=== PATIENT | male | born 1985 | race Caucasian/White ===

== ENCOUNTER 2017-12-10 04:50 | Emergency (ER) | payer OTHER ==
[~2017-12-10] VITALS: Ht 177.8 cm; Wt 94.8 kg
[2017-12-10 04:55] VITALS: BP 137/94
--- NOTE | 2017-12-10 04:59 | NUR ---
TO BED # 4 AMBULATORY, REPORT GIVEN TO CLAUDIA AGUIRRE.
--- NOTE | 2017-12-10 05:00 | NUR ---
32/M CAME IN ED, C/O N/V X4 DAYS, PT REPORTS VOMITING X4 TODAY. PT REPORTS COFFEE-GROUND EMESIS, SUBJECTIVE FEVER. PT REPORTS 10/10 CRAMPING PAIN THROUGHOUT BODY, INCLUDING ABD AND BUE. BS HYPOACTIVE X4, ABD SOFT, ROUND, SLIGHT TENDERNESS ON PALPATION. PT REPORTS "NOT EATING FOR 3 DAYS." LBM 3 DAYS AGO. HX ITP, HLD, GERD, SPLEENECTOMY. SKIN IS INTACT, PINK/WARM/DRY; AAOX4, PERRL, WITH EVEN AND STEADY GAIT; LUNGS CLEAR BL, BREATHING UNLABORED; HR EVEN AND REGULAR, BL PERIPHERAL PULSES PRESENT; PT DENIES ANY FEVER, CP, SOB, OR COUGH AT THIS TIME; PT STATES 0/10 PAIN AT THIS TIME; VSS; PATIENT POSITIONED FOR COMFORT; HOB ELEVATED; BEDRAILS UP X2; BED DOWN. ER MD AWARE.
[2017-12-10] MEDS ORDERED: NACL 0.9% 1,000 ML IV ONE (05:05)
[2017-12-10] MEDS ORDERED: ONDANSETRON 4 MG/2 ML VIAL IVP ONE (05:05)
[2017-12-10 05:41] LABS: HEMATOCRIT 49.1 % (36-52); HEMOGLOBIN 16.5 g/dL (12.0-18.0); MEAN CORPUSCULAR HEMOGLOBIN 30 pg (27-31); MEAN CORPUSCULAR HGB CONC 34 g/dL (33-37); PLATELET COUNT (AUTO) 340 K/uL (140-450); RED BLOOD CELL COUNT(AUTO) 5.58 MIL/uL (4.20-6.10); RED CELL DISTRIBUTION WIDTH 12.7 % (11.6-13.7); WHITE BLOOD COUNT (AUTO) 16.5 K/uL (4.8-10.8)
[2017-12-10 05:53] LABS: CARBON DIOXIDE 26.1 mmol/L (21-32); CREATININE 1.9 mg/dL (0.7-1.3); POTASSIUM 3.1 mmol/L (3.5-5.1)
[2017-12-10 05:59] LABS: ALBUMIN 4.9 g/dL (3.4-5.0); TOTAL BILIRUBIN 1.1 mg/dL (0.0-1.0)
[2017-12-10 06:06] LABS: LYMPHOCYTES % (MANUAL) 9 % (20-46); MONOCYTES % (MANUAL) 2 % (5-12)
[2017-12-10] MEDS ORDERED: FAMOTIDINE 20 MG TAB PO ONE (06:10)
[2017-12-10] MEDS ORDERED: MORPHINE SULFATE 4 MG/ML SYR IVP ONE (06:15)
[2017-12-10 06:55] VITALS: BP 135/85
--- NOTE | 2017-12-10 06:55 | NUR ---
Patient discharged with v/s stable. Written and verbal after care instructions given and explained to parent/guardian. Parent/Guardian verbalized understanding. . All questions addressed prior to discharge. Advised to follow up with PMD.
== END 2017-12-10 06:55 | disposition home or self-care (01) ==
LOC: MED 04:50
DX: Z79.1 Long term (current) use of non-steroidal anti-inflammatories (NSAID) (principal); K29.60 Other gastritis without bleeding; N28.9 Disorder of kidney and ureter, unspecified; K21.9 Gastro-esophageal reflux disease without esophagitis; E78.5 Hyperlipidemia, unspecified; Z90.89 Acquired absence of other organs
CPT/HCPCS: 36415; 80053; 82150; 83690; 85025; 96361; 96374; 96375; 99284; J2270; J2405

== ENCOUNTER 2017-12-12 04:10 | Emergency (ER) | payer OTHER ==
[~2017-12-12] VITALS: Ht 177.8 cm; Wt 94.8 kg
[2017-12-12 04:15] VITALS: BP 148/90
--- NOTE | 2017-12-12 04:15 | NUR ---
TO BED # 12 AMBULATORY , REPORT GIVEN TO RULA AGUIRRE.
--- NOTE | 2017-12-12 04:18 | NUR ---
PT TAKEN TO BED 12
--- NOTE | 2017-12-12 04:18 | NUR ---
Note undone in EDM - 12/12/17 at 0527 by MIRNA 32/M CAME IN W C/O RT MIDGASTRIC ABD PAIN, MULTIPLE N/V EPISODES X 5 DAYS. ABD SOFT, ROUND, -TENDERNESS. PMH: CHRONS, PEPTIC ULCER, ITP, SPLENECTOMY, HLD The patient is a 32-year-old male that comes into the emergency department secondary to complaints of right sided mid gastric abdominal pain with nausea and vomiting for the last 5 days. Patient states he has a history of Crohn's disease. The patient states, however, that his GI doctor goes back and forth between Crohn's and ulcerative colitis. Patient states he took too many nonsteroidal anti-inflammatories and an up with peptic ulcer disease. Patient takes only Protonix, Pepcid and Zofran for his pain control. Patient believes he is dehydrated because he hasn't had to urinate. Patient also states he is not had a bowel movement but believes he is not constipated because he is passing gas. He denies any fevers or chills, shortness of breath or chest pain.
--- NOTE | 2017-12-12 04:18 | NUR ---
32/M CAME IN W C/O RT MIDGASTRIC ABD PAIN, MULTIPLE N/V EPISODES X 5 DAYS. ABD SOFT, ROUND, -TENDERNESS. PMH: CHRONS, PEPTIC ULCER, ITP, SPLENECTOMY, HLD
[2017-12-12] MEDS ORDERED: NACL 0.9% 1,000 ML IV ONE (04:45)
[2017-12-12 05:05] LABS: HEMATOCRIT 46.9 % (36-52); MEAN CORPUSCULAR HEMOGLOBIN 30 pg (27-31); MEAN CORPUSCULAR HGB CONC 34 g/dL (33-37); MEAN CORPUSCULAR VOLUME 87.7 fL (80-94); PLATELET COUNT (AUTO) 327 K/uL (140-450); RED BLOOD CELL COUNT(AUTO) 5.35 MIL/uL (4.20-6.10); RED CELL DISTRIBUTION WIDTH 12.6 % (11.6-13.7); WHITE BLOOD COUNT (AUTO) 15.1 K/uL (4.8-10.8)
[2017-12-12] MEDS ORDERED: ONDANSETRON 4 MG/2 ML VIAL IVP ONE (05:05)
[2017-12-12 05:29] LABS: ALBUMIN 4.9 g/dL (3.4-5.0); ASPARTATE AMINOTRANSFERASE 15 U/L (15-37); CARBON DIOXIDE 24.9 mmol/L (21-32); CHLORIDE 97 mmol/L (98-107); CREATININE 2.1 mg/dL (0.7-1.3); GFR ARICAN-AMERICAN 47 mL/min (>90); GLUCOSE 173 mg/dL (74-106); SODIUM SERUM 138 mmol/L (136-145); TOTAL BILIRUBIN 1.2 mg/dL (0.0-1.0); UREA NITROGEN, BLOOD 31 mg/dL (7-18)
[2017-12-12] MEDS ORDERED: METOCLOPRAMIDE 10 MG/2 ML INJ VIAL IVP ONE (05:30)
[2017-12-12] MEDS ORDERED: MORPHINE SULFATE 2 MG/ML SYR IVP ONE (05:30)
[2017-12-12 05:38] LABS: POTASSIUM 2.9 mmol/L (3.5-5.1); SALICYLATE < 2.8 mg/dL (2.8-20.0)
[2017-12-12 05:39] LABS: ACETAMINOPHEN < 0.5 ug/ml (10-30)
[2017-12-12] MEDS ORDERED: POTASSIUM CHLORIDE 10 MEQ TABER PO ONE (05:40)
[2017-12-12 05:49] LABS: LYMPHOCYTES % (MANUAL) 9 % (20-46); MONOCYTES % (MANUAL) 7 % (5-12)
[2017-12-12 06:00] LABS: BARBITURATE, URINE NEG. ng/ml (NEG <=200); BENZODIAZEPINE, URINE NEG. ng/mL (NEG <=200); CANNABINOID, URINE POS. ng/mL (NEG <=50); COCAINE, URINE NEG. ng/mL (NEG <=300); OPIATE, URINE NEG. ng/mL (NEG <=2000); PHENCYCLIDINE SCREEN,URINE NEG. ng/mL (NEG <=25)
--- NOTE | 2017-12-12 06:03 | NUR ---
PT TAKEN TO CT
--- NOTE | 2017-12-12 06:05 | NUR ---
PT RETURN FROM CT AFTER REFUSING CT
[2017-12-12 06:12] VITALS: BP 138/72
--- NOTE | 2017-12-12 06:12 | NUR ---
Patient discharged with v/s stable. Written and verbal after care instructions given and explained. Patient verbalized understanding. Ambulatory with by parent. All questions addressed prior to discharge. Advised to follow up with PMD. IV removed, catheter intact and site benign. Applied folded 4x4 gauze and tape to stop bleeding.
== END 2017-12-12 06:12 | disposition home or self-care (01) ==
LOC: MED 04:10
DX: R10.9 Unspecified abdominal pain (principal); E87.6 Hypokalemia; R11.2 Nausea with vomiting, unspecified; K21.9 Gastro-esophageal reflux disease without esophagitis; F17.210 Nicotine dependence, cigarettes, uncomplicated
CPT/HCPCS: 36415; 80053; 80305; 85025; 96361; 96374; 96375; 99284; G0480; G0482; J2270; J2405; J2765; J7030

== ENCOUNTER 2017-12-14 15:10 | Inpatient (IN) | payer OTHER ==
[~2017-12-14] VITALS: Ht 177.8 cm; Wt 93.9 kg
--- NOTE | 2017-12-14 15:10 | NUR ---
Patient BIBA BLS, transferred to bed 10. RN evaluating patient at bedside.
[2017-12-14 15:16] VITALS: BP 118/75
--- NOTE | 2017-12-14 15:36 | NUR ---
LLQ ABD PAIN X4-5 DAYS WITH N/V; CONSTIPATION X1 WEEK. ABD ROUND, SOFT, TENDER WITH PALPATION. DENIES DYSURIA/FEVERS/CHILLS. PT VERBALIZES BEING IN AND OUT OF HOSPITALS WITHOUT CHRONS RELIEF . RESP EVEN AND UNLABORED, IN NAD. HAS ALSO REPORTED THAT HES HAD MULTIPLE GI SPECIALISTS DOING US, CT, ENDOSCOPY, COLONSCOPY WITHOUT ANY FINDINGS. 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
--- NOTE | 2017-12-14 16:07 | NUR ---
Patient came in by [facility] with pain to the abdomen. Mom called 911 due to him gasping for air and sob due to pain per mom. patient has pain to the abdomen for 2 weeks. pt also has a red rash on the abdomen. Patient has pain in the epigastric region. Pain radiates from to the outer sides of the abdomen. pateint has a history of chrons and IBS. patient has active bowl sounds in all four quadrants. abdomen is soft and tender to the touch. patient has not had a BM in 7 days per patient. patient has been belching/ hiccupping since arrived to the ER.
--- NOTE | 2017-12-14 17:04 | NUR ---
Dr. Moore evaluating patient at bedside.
[2017-12-14] MEDS ORDERED: NACL 0.9% 1,000 ML IV SCH ×2 (17:16→18:50)
[2017-12-14] MEDS ORDERED: NACL 0.9% 1,000 ML IV ONE (17:20)
[2017-12-14] MEDS ORDERED: GLYCOPYRROLATE 0.2 MG/ML VIAL IV ONE (17:20)
[2017-12-14] MEDS ORDERED: KETOROLAC 30 MG/ML VIAL IVP ONE (17:20)
[2017-12-14] MEDS ORDERED: METOCLOPRAMIDE 10 MG/2 ML INJ VIAL IVP ONE (17:20)
[2017-12-14] MEDS ORDERED: HYDROmorphone PFS 2 MG/ML SYR IVP ONE (17:20)
[2017-12-14 17:37] LABS: BASOPHILS # (AUTO) 0.1 K/uL (0.00-0.22); BASOPHILS % (AUTO) 0.7 % (0.0-2.0); EOSINOPHILS % (AUTO) 0.1 % (0.0-4.0); HEMATOCRIT 45.9 % (36-52); HEMOGLOBIN 15.7 g/dL (12.0-18.0); LYMPHOCYTES # (AUTO) 4.5 K/uL (2.0-11.5); LYMPHOCYTES % (AUTO) 22.9 % (20.5-51.1); MEAN CORPUSCULAR HEMOGLOBIN 30 pg (27-31); MEAN CORPUSCULAR HGB CONC 34 g/dL (33-37); MEAN CORPUSCULAR VOLUME 86.8 fL (80-94); MONOCYTES # (AUTO) 2.9 K/uL (0.8-1.0); MONOCYTES % (AUTO) 14.4 % (1.7-9.3); NEUTROPHILS # (AUTO) 12.3 K/uL (1.8-7.7); NEUTROPHILS % (AUTO) 61.9 % (42.2-75.2); PLATELET COUNT (AUTO) 320 K/uL (140-450); RED BLOOD CELL COUNT(AUTO) 5.29 MIL/uL (4.20-6.10); RED CELL DISTRIBUTION WIDTH 12.9 % (11.6-13.7); WHITE BLOOD COUNT (AUTO) 19.8 K/uL (4.8-10.8)
[2017-12-14 17:53] LABS: ALBUMIN 4.8 g/dL (3.4-5.0); ANION GAP 17.7 (8-16); CREATININE 2.5 mg/dL (0.7-1.3); TOTAL BILIRUBIN 2.4 mg/dL (0.0-1.0)
[2017-12-14 17:56] LABS: POTASSIUM 2.7 mmol/L (3.5-5.1)
[2017-12-14] MEDS ORDERED: KCL 20 MEQ/WATER INJ PREMIX 200 ML IV ONE ×2 (18:00→19:00)
[2017-12-14] MEDS ORDERED: NACL 0.9% 2,000 ML IV SCH (18:12)
[2017-12-14] MEDS ORDERED: PIPERACILLIN/TAZOBACTAM 3.375 GM in DEXT 5% MINI-BAG PLUS 50 ML IV ONE (18:15)
[2017-12-14] MEDS ORDERED: MORPHINE SULFATE 2 MG/ML SYR IVP ONE (18:15)
--- NOTE | 2017-12-14 18:37 | NUR ---
Patient returned from CT scan.
[2017-12-14] MEDS ORDERED: ACETAMINOPHEN 325 MG TAB PO PRN (18:50)
[2017-12-14] MEDS ORDERED: PIPERACILLIN/TAZOBACTAM 3.375 GM VIAL IV ONE (18:57)
[2017-12-14 19:19] LABS: PROTHROMBIN TIME 11.2 secs (10.8-13.4)
[2017-12-14 19:40] VITALS: BP 138/84
--- NOTE | 2017-12-14 19:40 | NUR ---
SPOKE TO [facility] TO Octavio MIXER AND BLENDER , EXPLAINED THAT PATIENT IS NON-COMPLIANT, SAO2 96% ON ROOM AIR. PATIENT TOSSING/ROLLING IN BED FROM SIDE TO SIDE, THEN WALKING HALLWAY STATING THAT HE IS IN PAIN. DOCTOR STATED SINCE HE DID NOT ORDER, HAVE E.R.DOCTOR D/C THE ABG. SPOKE W/ DR. ANTHONY AND EXPLAINED SITUATION AND STATED HE WILL D/C ABG ORDER
--- NOTE | 2017-12-14 19:40 | NUR ---
RECEIVED REPORT FROM ER NURSE AT BEDSIDE FOR CONTINUITY OF CARE. PT AAOX4. ON RA. IV NOTED R HAND 22G. NO SOB NO S/S OF DISTRESS. WILL CONTINUE TO MONITOR.
--- NOTE | 2017-12-14 19:40 | NUR ---
REPORT GIVEN AND CARE TRANSFERED TO SHIKHA RN ROOM 113. PT TRANSFERED VIA [facility] WITH VSS.
--- NOTE | 2017-12-14 19:41 | NUR ---
PT CAME IN WITH ZOSYN 3.375 STARTED IN ER. I PUT ZOSYN IN IV PUMP AND INFUSED IV.
[2017-12-14] MEDS: MORPHINE SULFATE 4 MG/ML SYR IVP PRN (19:57)
[2017-12-14] MEDS: METOCLOPRAMIDE 10 MG/2 ML INJ VIAL IVP PRN (19:57)
[2017-12-14] MEDS ORDERED: metroNIDAZOLE 500 MG/NS PREMIX 100 ML IV ONE (21:00)
--- NOTE | 2017-12-14 22:40 | NUR ---
ZOSYN END OF FUSION. AND BEGAN NORMAL SALINE 100ML/HR.
[2017-12-14] MEDS: LORazepam 2 MG/ML VIAL IVP PRN (22:58)
--- NOTE | 2017-12-14 22:59 | NUR ---
STARTED 20 MEQ KCL INFUSING 50 ML/HR WITH CONTINUOUS INFUSION OF NS 100ML HR.
[2017-12-14] MEDS ORDERED: MORPHINE SULFATE 4 MG/ML SYR IVP SCH (23:00)
[2017-12-15] VITALS: BP 146/95
--- NOTE | 2017-12-15 | NUR ---
PT HAS CALLED 15 TIMES HE IS IN PAIN HE HAS ANXIETY AND HE CANT BREATH. VITALS STABLE. REASSURED HIM. WILL CONTINUE TO MONITOR.
--- NOTE | 2017-12-15 00:20 | NUR ---
ENDED 20 YEHUDA KCL IV.
[2017-12-15] MEDS ORDERED: cefTRIAXone 1,000 MG VIAL ONE (00:37)
--- NOTE | 2017-12-15 00:38 | NUR ---
STARTED ROCEPHIN ABX AT 0038 50ML RUNNING AT 100ML HR.
--- NOTE | 2017-12-15 01:30 | NUR ---
ROCEPHIN IV INFUSING ENDED AT 0130
[2017-12-15] MEDS ORDERED: metroNIDAZOLE 500 MG/NS PREMIX 100 ML IV ONE (01:33)
--- NOTE | 2017-12-15 01:34 | NUR ---
STARTED FLAGYL AT 0134. FLAGYL 500MG IN 100ML NS. RUNNING AT 100ML/HR.
--- NOTE | 2017-12-15 01:45 | NUR ---
ENDED INFUSING OF FLAGYL.
--- NOTE | 2017-12-15 02:26 | NUR ---
PT STATING THEY WANT TO GO HOME/ I TOLD HIM TO LET ME KNOW WHAT HE DECIDES
[2017-12-15] MEDS ORDERED: KCL 20 MEQ/WATER INJ PREMIX 100 ML IV ONE (02:58)
--- NOTE | 2017-12-15 02:59 | NUR ---
STARTED 20 MEQ KCL AT 0259 AT 50ML/HR AT SAME TIME RUNNING NS 100ML/HR
[2017-12-15] MEDS: MORPHINE SULFATE 4 MG/ML SYR IVP PRN ×5 (03:01→22:59)
[2017-12-15 04:00] VITALS: BP 97/56
--- NOTE | 2017-12-15 04:05 | NUR ---
PT HAND WAS BURNING FROM KCL 20 YEHUDA. SLOWED DOWN INFUSION TO 25ML HR WITH NS 100ML HR. WILL CONTINUE TO MONITOR.
[2017-12-15] MEDS: LORazepam 2 MG/ML VIAL IVP PRN ×2 (05:13→20:55)
--- NOTE | 2017-12-15 06:25 | NUR ---
20 MEQ KCL IV INFUSION ENDED.
--- NOTE | 2017-12-15 07:32 | NUR ---
GAVE REPORT TO DAYSHIFT NURSE FOR CONTINUITY OF CARE.
[2017-12-15 08:00] VITALS: BP 133/90
--- NOTE | 2017-12-15 08:00 | NUR ---
PATIENT AWAKE, ALERT. RESPIRATION EVEN, UNLABOR ON ROOM AIR. SKIN DRY AND WARM. LUNGS SOUND CLEAR THROUGHOUT. BOWEL SOUND ACTIVE 4 QUADRANTS. REGULAR CARDIAC RHYTHM. COMPLAINED OF ABDOMINAL PAIN 04/16. DENIED N/V, DIARRHEA. PLAN OF CARE WAS DISCUSSED WITH PATIENT. BED AT LOW POSITION, SIDE RAILS UP. CALL LIGHT WITHIN REACH.
[2017-12-15 08:32] LABS: APPEARANCE,URINE CLEAR (CLEAR); BILIRUBIN,URINE NEGATIVE (NEGATIVE); BLOOD, URINE NEGATIVE (NEGATIVE); COLOR,URINE YELLOW (YELLOW); LEUKOCYTE ESTERASE ,URINE NEGATIVE (NEGATIVE); NITRITE, URINE NEGATIVE (NEGATIVE); PH,URINE 5.5 (5.0-9.0); UGLUCOSE NEGATIVE (NEGATIVE)
[2017-12-15 08:43] LABS: RBC,URINE NONE SEEN /HPF (0-5); WBC,URINE NONE SEEN /HPF (0-5)
[2017-12-15] MEDS ORDERED: PANTOPRAZOLE 40 MG INJ VIAL IVP ONE (09:00)
[2017-12-15] MEDS: ENOXAPARIN 30 MG/0.3 ML SYR SUBQ SCH (09:00)
[2017-12-15 09:31] LABS: HEMATOCRIT 42.5 % (36-52); HEMOGLOBIN 14.3 g/dL (12.0-18.0); MEAN CORPUSCULAR HEMOGLOBIN 29 pg (27-31); MEAN CORPUSCULAR HGB CONC 34 g/dL (33-37); MEAN CORPUSCULAR VOLUME 87.1 fL (80-94); PLATELET COUNT (AUTO) 299 K/uL (140-450); RED BLOOD CELL COUNT(AUTO) 4.88 MIL/uL (4.20-6.10); RED CELL DISTRIBUTION WIDTH 12.6 % (11.6-13.7); WHITE BLOOD COUNT (AUTO) 24.4 K/uL (4.8-10.8)
[2017-12-15 09:52] LABS: ANION GAP 14.1 (8-16); CARBON DIOXIDE 27.4 mmol/L (21-32); CREATININE 2.3 mg/dL (0.7-1.3)
[2017-12-15] MEDS: METOCLOPRAMIDE 10 MG/2 ML INJ VIAL IVP PRN (09:56)
[2017-12-15 09:57] LABS: BASOPHILS % (MANUAL) 0 % (0-2); EOSINOPHILS % (MANUAL) 0 % (0-4); LYMPHOCYTES % (MANUAL) 8 % (20-46); MONOCYTES % (MANUAL) 14 % (5-12)
[2017-12-15 10:03] LABS: POTASSIUM 2.5 mmol/L (3.5-5.1)
--- NOTE | 2017-12-15 10:15 | NUR ---
DR. WYNN WAS MADE AWARE OF POTASSIUM LEVEL 2.5, WILL MEDICATE PER ORDER
--- NOTE | 2017-12-15 10:15 | NUR ---
PATIENT AWAKE, ALERT. RESPIRATION EVEN, UNLABOR ON ROOM AIR. COMPLAINED OF NAUSEA, MED WAS GIVEN PER ORDER. CALL LIGHT WITHIN REACH
[2017-12-15 10:25] LABS: MAGNESIUM 2.7 mg/dL (1.8-2.4); PHOSPHORUS 4.8 mg/dL (2.5-4.9)
--- NOTE | 2017-12-15 11:00 | NUR ---
IVF D51/2NS 40MEQ K WAS HUNG AT 1100
[2017-12-15] MEDS ORDERED: METOCLOPRAMIDE 10 MG/2 ML INJ VIAL IVP PRN (11:25)
--- NOTE | 2017-12-15 11:30 | NUR ---
PATIENT WAS SLEEPING COMFORTABLY. RESPIRATION EVEN, UNLABOR ON ROOM AIR. MED WAS GIVEN PER ORDER. NO DISTRESS NOTED AT THIS TIME
[2017-12-15] MEDS: SENNA 8.6 MG TAB PO SCH ×2 (12:20→16:44)
[2017-12-15] MEDS: POLYETHYLENE GLYCOL 17 GM/PKT PO SCH ×3 (12:20→20:54)
[2017-12-15] MEDS: POTASSIUM CHL 40 MEQ/ D5-1/2NS 1,000 ML IV SCH (12:21)
[2017-12-15 13:16] LABS: BARBITURATE, URINE NEG. ng/ml (NEG <=200); BENZODIAZEPINE, URINE NEG. ng/mL (NEG <=200); CANNABINOID, URINE POS. ng/mL (NEG <=50); COCAINE, URINE NEG. ng/mL (NEG <=300); OPIATE, URINE POS. ng/mL (NEG <=2000); PHENCYCLIDINE SCREEN,URINE NEG. ng/mL (NEG <=25)
--- NOTE | 2017-12-15 13:51 | NUR ---
PATIENT IS SLEEPING COMFORTABLY. RESPIRATION EVEN, UNLABOR ON ROOM AIR. NO DISTRESS NOTED AT THIS TIME. CALL LIGHT WITHIN REACH
[2017-12-15 15:42] LABS: ANION GAP 13.8 (8-16); CARBON DIOXIDE 27.8 mmol/L (21-32); CREATININE 1.9 mg/dL (0.7-1.3)
--- NOTE | 2017-12-15 15:45 | NUR ---
PATIENT WAS SLEEPING COMFORTABLY, EASILY AROUSABLE BY NAME. RESPIRATION EVEN, UNLABOR ON ROOM AIR. DENIED PAIN PAIN AT THIS TIME. VS IS STABLE. CALL LIGHT WITHIN REACH
[2017-12-15 15:51] LABS: POTASSIUM 2.6 mmol/L (3.5-5.1)
[2017-12-15 16:00] VITALS: BP 117/70
[2017-12-15] MEDS: ONDANSETRON 4 MG/2 ML VIAL IVP PRN (16:44)
--- NOTE | 2017-12-15 19:19 | NUR ---
ENDORSEMENT GIVEN TO THE ENGINEERING CONSULTANT NURSE. PATIENT IS STABLE AT THIS TIME
--- NOTE | 2017-12-15 19:20 | NUR ---
RECEIVED REPORT FROM DAY SHIFT NURSE ERIC-RN. PT AOX4, ON ROOM AIR, IV SITE- LEFT HAND 24# INFUSING WITH D5-NS0.45% - 40MEQ AT 75ML/HR. IV SITE RIGHT HAND 22G-SL. DISCUSSED PLAN OF CARE AND PT VERBALIZED UNDERSTANDING. NO S/S OF RESPIRATORY DISTRESS OR DISCOMFORT NOTED AT THIS TIME. WHITE BOARD UPDATED. BED IN LOWEST POSITION, BED BREAKS ON, SIDE RAILS UP. BED SIDE TABLE AND CALL LIGHT WITHIN REACH. WILL CONTINUE TO MONITOR.
[2017-12-15 20:00] VITALS: BP 115/67
--- NOTE | 2017-12-15 20:00 | NUR ---
VITAL SIGNS TAKEN AND TOLERATED WELL. NO S/S OF RESPIRATORY DISTRESS OR DISCOMFORT NOTED AT THIS TIME. WILL CONTINUE TO MONITOR.
--- NOTE | 2017-12-15 20:55 | NUR ---
SCHEDULED MEDICATION GIVEN AND TOLERATED WELL. PT TEACHING ON MIRALAX AND CITROMA (GOLYTELY)-EXPECT MANY BOWEL MOVEMENTS TONIGHT TO CLEAN OUT BOWELS AND FREE SELF OF CONSTIPATION. PT VERBALIZED UNDERSTANDING. WILL CONTINUE TO MONITOR.
[2017-12-15] MEDS ORDERED: MAGNESIUM CITRATE 300 ML BTL PO SCH (21:00)
--- NOTE | 2017-12-15 21:36 | NUR ---
PT REQUESTED CRACKERS AFTER C/O HUNGER. REMINDED PT THAT HE IS ON A CLEAR LIQUID DIET. PT THEN REQUESTED CHICKEN BROTH. PROVIDED PT WITH CHICKEN BROTH. PT RESTING IN BED DRINKING CHICKEN BROTH. WILL CONTINUE TO MONITOR.
--- NOTE | 2017-12-15 23:00 | NUR ---
PT C/O PAIN 10/10 AND MEDICATED WITH MORPHINE. WILL CONTINUE TO MONITOR.
[2017-12-16] VITALS: BP 111/62
--- NOTE | 2017-12-16 | NUR ---
VITAL SIGN TAKEN AND TOLERATED WELL. HAS NORMAL RANGE IN BLOOD PRESSURE WHEN SITTING UP RATHER THAN LYING SUPINE. WILL CONTINUE TO MONITOR.
[2017-12-16] MEDS: POTASSIUM CHL 40 MEQ/ D5-1/2NS 1,000 ML IV SCH ×2 (00:20→12:00)
--- NOTE | 2017-12-16 02:00 | NUR ---
PT C/O SWOLLEN LEFT HAND IV SITE. SWITCHED IVF TO RIGHT HAND HOWEVER PT C/O BURNING. BOTH IV'S WERE TAKEN OUT. CHARGE NURSE CAREY ATTEMPTED TWICE ON BOTH AC'S HOWEVER WAS UNSUCCESSFUL. ER HAS BEEN CALLED TO ATTEMPT IV SITE. WILL CONTINUE TO MONITOR.
--- NOTE | 2017-12-16 03:21 | NUR ---
CARLA FERNANDO INSERTED IV ON RIGHT HAND #24G.
[2017-12-16] MEDS: MORPHINE SULFATE 4 MG/ML SYR IVP PRN ×2 (03:40→08:37)
--- NOTE | 2017-12-16 03:40 | NUR ---
PT C/O PAIN 04/16. MEDICATED WITH MORPHINE. WILL CONTINUE TO MONITOR.
[2017-12-16] MEDS: ONDANSETRON 4 MG/2 ML VIAL IVP PRN (06:12)
--- NOTE | 2017-12-16 06:15 | NUR ---
PT C/O NAUSEA. ADMINISTERED ZOFRAN. NO S/S OF RESPIRATORY DISTRESS OR DISCOMFORT. WILL CONTINUE TO MONITOR.
--- NOTE | 2017-12-16 07:15 | NUR ---
RECEIVED PATIENT REPORT FROM NIGHTSHIFT NURSE AT BEDSIDE. PATIENT IS ASLEEP AT THIS TIME IN SEMI-FOWLERS POSITION. PATIENT AROUSABLE TO NAME. PATIENT HAS AN IV ON HIS LEFT HAND 24 G INFUSING D5 0.45 NS W/ 40 MEQ KCL AT 75 ML/HR. NO DISTRESS NOTED AT THIS TIME. PATIENT DOES NOT COMPLAIN OF PAIN. UPDATED BOARD IN PATIENT'S ROOM. LOWERED BED TO LOWEST SETTING. PUT CALL LIGHT WITHIN REACH OF PATIENT. WILL CONTINUE TO MONITOR PATIENT.
--- NOTE | 2017-12-16 07:15 | NUR ---
ENDORSED PT CARE TO DAY SHIFT NURSE KYLE FOR CONTINUITY OF CARE.
[2017-12-16 08:00] VITALS: BP 113/69
[2017-12-16] MEDS: SENNA 8.6 MG TAB PO SCH ×2 (08:37→12:47)
[2017-12-16] MEDS: POLYETHYLENE GLYCOL 17 GM/PKT PO SCH ×2 (08:37→12:47)
--- NOTE | 2017-12-16 08:37 | NUR ---
PATIENT TOOK AM MEDICATIONS. WILL CONTINUE TO MONITOR PATIENT.
[2017-12-16] MEDS: ENOXAPARIN 30 MG/0.3 ML SYR SUBQ SCH (08:46)
--- NOTE | 2017-12-16 11:45 | NUR ---
PATIENT RESTING IN BED. NO DISTRESS NOTED. WILL CONTINUE TO MONITOR PATIENT.
[2017-12-16] MEDS ORDERED: KCL 20 MEQ/WATER INJ PREMIX 100 ML IV SCH (12:00)
--- NOTE | 2017-12-16 12:16 | NUR ---
Clinical review faxed to Beryl at [facility] at [phone]
[2017-12-16] MEDS: LORazepam 2 MG/ML VIAL IVP PRN (12:48)
--- NOTE | 2017-12-16 12:48 | NUR ---
PATIENT FEELS ANXIOUS AT THIS TIME. PATIENT REQUESTED TO HAVE ATIVAN TO HELP HIM CALM DOWN. ADMINISTERED MEDICATION TO PATIENT. WILL CONTINUE TO MONITOR PATIENT.
--- NOTE | 2017-12-16 14:20 | NUR ---
IV SITE ON LEFT HAND 24G APPEARS RED AND SWOLLEN. STOPPED FLUIDS OF PATIENT. WILL TRY TO OBTAIN ACCESS AT A DIFFERENT SITE.
[2017-12-16 14:43] LABS: BASOPHILS # (AUTO) 0.1 K/uL (0.00-0.22); BASOPHILS % (AUTO) 0.6 % (0.0-2.0); EOSINOPHILS # (AUTO) 0.1 K/uL (0-0.4); EOSINOPHILS % (AUTO) 0.7 % (0.0-4.0); HEMATOCRIT 39.3 % (36-52); HEMOGLOBIN 13.2 g/dL (12.0-18.0); LYMPHOCYTES # (AUTO) 2.3 K/uL (2.0-11.5); MEAN CORPUSCULAR HEMOGLOBIN 30 pg (27-31); MEAN CORPUSCULAR HGB CONC 34 g/dL (33-37); MEAN CORPUSCULAR VOLUME 88.2 fL (80-94); MONOCYTES # (AUTO) 1.6 K/uL (0.8-1.0); MONOCYTES % (AUTO) 14.7 % (1.7-9.3); NEUTROPHILS # (AUTO) 6.8 K/uL (1.8-7.7); PLATELET COUNT (AUTO) 277 K/uL (140-450); RED BLOOD CELL COUNT(AUTO) 4.45 MIL/uL (4.20-6.10); RED CELL DISTRIBUTION WIDTH 12.6 % (11.6-13.7); WHITE BLOOD COUNT (AUTO) 10.9 K/uL (4.8-10.8)
[2017-12-16 15:04] LABS: ANION GAP 10.3 (8-16); CARBON DIOXIDE 27.2 mmol/L (21-32); CREATININE 1.1 mg/dL (0.7-1.3); POTASSIUM 3.5 mmol/L (3.5-5.1)
[2017-12-16] MEDS ORDERED: ACET-1182 PO (15:55)
--- NOTE | 2017-12-16 16:00 | NUR ---
STILL UNABLE TO OBTAIN ACCESS FOR PATIENT TO INFUSE FLUIDS OR IV POTASSIUM REPLACEMENT. WILL PLAN TO WASTE MEDICATION. MEDICATION ALREADY OPENED.
--- NOTE | 2017-12-16 16:30 | NUR ---
PATIENT SIGNED ALL DISCHARGE ORDERS AND AWARE OF DISCHARGE PRESCRIPTIONS AND INSTRUCTIONS. REMOVED ALL IDENTIFICATION BANDS AND IV SITES. PATIENT GATHERED ALL BELONGINGS. PATIENT AMBULATED OFF THE UNIT IN STABLE CONDITION.
--- NOTE | 2017-12-16 16:40 | NUR ---
WASTED POTASSIUM REPLACEMENT IV. WAS UNABLE TO OBTAIN ACCESS TO INFUSE MEDICATION. PATIENT'S POTASSIUM IS 3.5.
[2017-12-17] MEDS ORDERED: POTASSIUM CHLORIDE 20% 40 MEQ/15 ML UDC PO SCH (09:00)
== END 2017-12-16 16:30 | disposition home or self-care (01) | DRG 54 ==
LOC: MED 15:10 → MTU 18:55 → OBSVTOIN 12-15 18:46
PROVIDERS: ADMIT Hospitalist; ATTEND Hospitalist
DX: G43.A0 Cyclical vomiting, in migraine, not intractable (principal); N17.9 Acute kidney failure, unspecified; N18.4 Chronic kidney disease, stage 4 (severe); K50.90 Crohn's disease, unspecified, without complications; E87.1 Hypo-osmolality and hyponatremia; E86.0 Dehydration; K21.9 Gastro-esophageal reflux disease without esophagitis; Z90.81 Acquired absence of spleen; E86.1 Hypovolemia; E87.6 Hypokalemia; T40.7X5A Adverse effect of cannabis (derivatives), initial encounter; Y92.89 Other specified places as the place of occurrence of the external cause; F12.90 Cannabis use, unspecified, uncomplicated; D72.829 Elevated white blood cell count, unspecified
CPT/HCPCS: 96361; 96374; 96375; 99285; G0378; 36415; 71045; 74018; 74150; 76770; 80048; 80053; 80305; 81001; 82150; 82550; 82553; 83605; 83690; 83735; 83874; 84100; 85025; 85610; 85651; 85730; 86140; 87040; 87081; 87086; C9113; J0696; J1170; J1650; J1885; J2060; J2270; J2405; J2543; J2765; J3480; J3490; J7030; J7060; Q0092

== ENCOUNTER 2018-02-26 04:40 | Inpatient (IN) | payer OTHER ==
[~2018-02-26] VITALS: Ht 177.8 cm; Wt 91.2 kg
[~2018-02-26 04:40] MED LIST: ACET-1182 PO
[2018-02-26 04:45] VITALS: BP 100/64
--- NOTE | 2018-02-26 04:45 | NUR ---
TO BED # 4 AMBULATORY, REPORT GIVEN TO GERARDO AGUIRRE
--- NOTE | 2018-02-26 04:45 | NUR ---
PATIENT PRESENTS TO ED WITH BILAT LOWER ABD PAIN RADIATING TO BILAT LOWER BACK X3 WKS. PT STATES SEEING ZONING ENGINEER WITHOUT RESOLUTION OF PAIN. STATES N/V/D; SKIN IS PINK/WARM/DRY; AAOX4 WITH EVEN AND STEADY GAIT; LUNGS CLEAR BL; HR EVEN AND REGULAR; PT DENIES ANY FEVER, CP, SOB, OR COUGH AT THIS TIME; PATIENT STATES PAIN OF 10/10 AT THIS TIME; VSS; PATIENT POSITIONED FOR COMFORT; HOB ELEVATED; BEDRAILS UP X2; BED DOWN. FATHER AT BEDSIDE ER MD MADE AWARE OF PT STATUS. CONTINUE TO MONITOR.
--- NOTE | 2018-02-26 04:49 | NUR ---
German clayton in [facility] - 02/26/18 at 0449 by MUNIRA PT AMBULATED TO BED 4
[2018-02-26] MEDS ORDERED: KETOROLAC 30 MG/ML VIAL IVP ONE (05:05)
--- NOTE | 2018-02-26 05:46 | NUR ---
FAMILY AT BEDSIDE
--- NOTE | 2018-02-26 05:53 | NUR ---
Dr. Pitt evaluating patient at bedside.
[2018-02-26 06:05] LABS: BASOPHILS # (AUTO) 0.1 K/uL (0.00-0.22); BASOPHILS % (AUTO) 0.4 % (0.0-2.0); HEMATOCRIT 48.6 % (36-52); HEMOGLOBIN 16.5 g/dL (12.0-18.0); LYMPHOCYTES # (AUTO) 1.8 K/uL (2.0-11.5); LYMPHOCYTES % (AUTO) 10.2 % (20.5-51.1); MEAN CORPUSCULAR HEMOGLOBIN 30 pg (27-31); MEAN CORPUSCULAR HGB CONC 34 g/dL (33-37); MEAN CORPUSCULAR VOLUME 88.3 fL (80-94); MONOCYTES # (AUTO) 1.8 K/uL (0.8-1.0); MONOCYTES % (AUTO) 10.1 % (1.7-9.3); NEUTROPHILS # (AUTO) 14.1 K/uL (1.8-7.7); NEUTROPHILS % (AUTO) 79.3 % (42.2-75.2); PLATELET COUNT (AUTO) 364 K/uL (140-450); RED CELL DISTRIBUTION WIDTH 13.5 % (11.6-13.7); WHITE BLOOD COUNT (AUTO) 17.8 K/uL (4.8-10.8)
--- NOTE | 2018-02-26 06:08 | NUR ---
PT TAKEN XRAY
[2018-02-26] MEDS ORDERED: fentaNYL 0.05 MG/ML VIAL IVP ONE (06:15)
[2018-02-26] MEDS ORDERED: NACL 0.9% 1,000 ML IV ONE (06:15)
--- NOTE | 2018-02-26 06:18 | NUR ---
PT RETURN FROM XRAY
[2018-02-26 06:27] LABS: ANION GAP 18.4 (8-16); CARBON DIOXIDE 23.9 mmol/L (21-32); POTASSIUM 3.3 mmol/L (3.5-5.1)
[2018-02-26 06:41] LABS: ALBUMIN 5.2 g/dL (3.4-5.0); TOTAL BILIRUBIN 1.2 mg/dL (0.0-1.0)
--- NOTE | 2018-02-26 06:45 | NUR ---
PT REFUSED FENTANYL. DR HARRIS NOTIFIED. MEDICATION WASTED.
[2018-02-26] MEDS ORDERED: HYDROmorphone PFS 2 MG/ML SYR IVP ONE (06:50)
[2018-02-26] MEDS ORDERED: NACL 0.9% 1,000 ML IV SCH (06:54)
[2018-02-26 07:12] LABS: APPEARANCE,URINE SL CLOUDY (CLEAR); BILIRUBIN,URINE 2+ (NEGATIVE); BLOOD, URINE TRACE-I (NEGATIVE); COLOR,URINE YELLOW (YELLOW); LEUKOCYTE ESTERASE ,URINE NEGATIVE (NEGATIVE); NITRITE, URINE NEGATIVE (NEGATIVE); PH,URINE 5.5 (5.0-9.0); UGLUCOSE NEGATIVE (NEGATIVE)
--- NOTE | 2018-02-26 07:16 | NUR ---
PT TAKEN TO THE FLOOR BY CARLA CARRILLO AND EMT SAVITA
--- NOTE | 2018-02-26 07:20 | NUR ---
REPORT GIVEN AND CARE TRANSFERED TO AKIL AGUIRRE. TRANSFERED VIA [facility] WITH VSS.
[2018-02-26 07:30] VITALS: BP 124/66
--- NOTE | 2018-02-26 07:30 | NUR ---
PATIENT ADMITTED TO THE UNIT FROM ER. PATIENT AWAKE, ALERT AND ORIENTED. NO S/S OF DISTRESS. NO VOMITING AT THIS TIME. PATIENT REPORTS TOLERABLE PAIN. PATIENT PLACED ON TELE MONITORING. BED LOWERED WITH CALL LIGHT WITHIN REACH. WILL CONTINUE TO MONITOR
[2018-02-26 07:34] LABS: RBC,URINE 0-5 (RARE) /HPF (0-5); WBC,URINE 0-5 (RARE) /HPF (0-5)
[2018-02-26 07:35] LABS: HYALINE CASTS, URINE 0-10 /LPF (None Seen)
[2018-02-26] MEDS: MORPHINE SULFATE 2 MG/ML SYR IVP PRN ×4 (08:03→21:34)
--- NOTE | 2018-02-26 08:40 | NUR ---
PATIENT HAS BEEN SCREENED AND CATEGORIZED MODERATE NUTRITION RISK. PATIENT WILL BE SEEN WITHIN 3-5 DAYS OF ADMISSION. 02/28/18 03/02/[address]
[2018-02-26] MEDS: ENOXAPARIN 40 MG/0.4 ML SYR SUBQ SCH (09:00)
[2018-02-26] MEDS: HYDROcodone/APAP 5/325 MG 1 TAB TAB PO PRN (11:07)
[2018-02-26] MEDS: ONDANSETRON 4 MG/2 ML VIAL IVP PRN ×3 (11:08→21:38)
--- NOTE | 2018-02-26 11:26 | NUR ---
PATIENT AWAKE IN BED, WATCHING MOVIES ON HIS PHONE. PATIENT'S VISITOR PRESENT AT BEDSIDE. NO S/S OF DISTRESS NOTED
--- NOTE | 2018-02-26 13:00 | NUR ---
PATIENT BEING EVALUATED BY DR LUNA
[2018-02-26] MEDS: metroNIDAZOLE 500 MG/NS PREMIX 100 ML IV SCH ×2 (13:35→21:44)
--- NOTE | 2018-02-26 14:35 | NUR ---
CM NOTE INITIAL REVIEW FAXED TO [facility] [phone] CARLOS # [phone]
--- NOTE | 2018-02-26 16:20 | NUR ---
PATIENT AMBULATING AROUND THE UNIT. NO S/S OF DISTRESS NOTED
[2018-02-26 17:01] VITALS: BP 132/85
[2018-02-26] MEDS ORDERED: POTASSIUM CHLORIDE 10 MEQ TABER PO SCH (17:35)
--- NOTE | 2018-02-26 18:00 | NUR ---
PATIENT SEEN BY DR RANDHAWA
--- NOTE | 2018-02-26 19:20 | NUR ---
PATIENT REPORT GIVEN AT BEDSIDE. PATIENT ENDORSED IN STABLE CONDITION
--- NOTE | 2018-02-26 19:25 | NUR ---
RECEIVED PT IN STABLE CONDITION FROM AM NURSE. AWAKE,ALERT AND ORIENTED X4. AMBULATORY. ON TELE MONITOR-SR. NO C/O ANY DISCOMFORT AT THIS TIME. WILL MONITOR URINE OUTPUT . HAS IV ACCESS ON THE RT FOOT G#20. INSTRUCTED PT TO BE VERY CAREFUL WITH THE IV WHEN AMBULATING . VERBALIZED UNDERSTANDING.
[2018-02-26 20:00] VITALS: BP 135/72
--- NOTE | 2018-02-26 21:34 | NUR ---
PT C/O ABDOMINAL PAIN . MEDICATED ORDERED. WILL CONTINUE TO MONITOR.
--- NOTE | 2018-02-26 21:45 | NUR ---
PT AMBULATING TO THE HALLWAY. HE SAID IT HELPS WITH THE PAIN .
--- NOTE | 2018-02-26 23:00 | NUR ---
MADE ROUNDS. PT IS ASLEEP. NO S/S OF ANY DISCOMFORT NOR PAIN NOTED.
[2018-02-27] VITALS (7 sets, daily range): BP systolic 110–152; BP diastolic 55–106
--- NOTE | 2018-02-27 00:50 | NUR ---
VITAL SIGNS TAKEN. STABLE. WITH NO C/O ANY DISCOMFORT NOTED AT THIS TIME.
--- NOTE | 2018-02-27 01:30 | NUR ---
MADE ROUNDS. PT ASLEEP. NO S/S OF ANY DISCOMFORT NOTED. WILL CONTINUE TO MONITOR.
[2018-02-27] MEDS: MORPHINE SULFATE 2 MG/ML SYR IVP PRN ×5 (02:41→20:09)
[2018-02-27] MEDS: metroNIDAZOLE 500 MG/NS PREMIX 100 ML IV SCH ×3 (04:49→20:09)
[2018-02-27] MEDS: ONDANSETRON 4 MG/2 ML VIAL IVP PRN ×3 (05:04→16:58)
--- NOTE | 2018-02-27 05:04 | NUR ---
C/O NAUSEA . MEDICATED WITH ZOFRAN I ORDERED PRN. WILL CONTINUE TO MONITOR.
--- NOTE | 2018-02-27 06:38 | NUR ---
PT AMBULATING TO THE HALLWAY. THEN BACK TO BED. LAB DRAWING BLOOD . C/O ABDOMINAL PAIN . MEDICATED ORDERED .
--- NOTE | 2018-02-27 07:18 | NUR ---
RECEIVED PT REPORT FROM SQUARING MACHINE OPERATOR NURSE. PT IS AWAKE, ALERT AND ORIENTED X4. AMBULATING IN THE HALLWAY, PACING AROUND. ON TELE MONITOR-ST. IV ACCESS ON THE RT FOOT, 20G ASYMPTOMATIC, PATENT AND INTACT. INSTRUCTED PT TO BE VERY CAREFUL WITH THE IV WHEN AMBULATING . VERBALIZED UNDERSTANDING.
--- NOTE | 2018-02-27 07:20 | NUR ---
ENDORSED PT IN STABLE CONDITION TO AM NURSE FOR CONTINUITY OF CARE.
[2018-02-27 07:23] LABS: BASOPHILS # (AUTO) 0.1 K/uL (0.00-0.22); BASOPHILS % (AUTO) 0.6 % (0.0-2.0); EOSINOPHILS # (AUTO) 0.1 K/uL (0-0.4); EOSINOPHILS % (AUTO) 0.5 % (0.0-4.0); HEMATOCRIT 44.9 % (36-52); LYMPHOCYTES # (AUTO) 1.8 K/uL (2.0-11.5); LYMPHOCYTES % (AUTO) 14.2 % (20.5-51.1); MEAN CORPUSCULAR HEMOGLOBIN 30 pg (27-31); MEAN CORPUSCULAR HGB CONC 33 g/dL (33-37); MONOCYTES # (AUTO) 1.9 K/uL (0.8-1.0); MONOCYTES % (AUTO) 14.8 % (1.7-9.3); NEUTROPHILS # (AUTO) 9.1 K/uL (1.8-7.7); NEUTROPHILS % (AUTO) 69.9 % (42.2-75.2); PLATELET COUNT (AUTO) 333 K/uL (140-450); RED BLOOD CELL COUNT(AUTO) 5.04 MIL/uL (4.20-6.10); RED CELL DISTRIBUTION WIDTH 13.4 % (11.6-13.7)
[2018-02-27 07:45] LABS: ALBUMIN 4.5 g/dL (3.4-5.0); ANION GAP 16.4 (8-16); CREATININE 1.6 mg/dL (0.7-1.3); MAGNESIUM 2.2 mg/dL (1.8-2.4); PHOSPHORUS 3.7 mg/dL (2.5-4.9); POTASSIUM 3.4 mmol/L (3.5-5.1); TOTAL BILIRUBIN 1.1 mg/dL (0.0-1.0)
[2018-02-27] MEDS ORDERED: ALPRAZolam 0.25 MG TAB PO PRN (08:20)
[2018-02-27] MEDS ORDERED: KETOROLAC 30 MG/ML VIAL IVP PRN (08:20)
--- NOTE | 2018-02-27 08:30 | NUR ---
SPOKE WITH DR LUNA OVER THE PHONE, REPORTED PT FELT ANXIOUS AND C/O ABD PAIN. MD ORDERED XANAX PO 0.25MG, AND 30 MG TORADOL IVP.
[2018-02-27] MEDS: HYDROcodone/APAP 5/325 MG 1 TAB TAB PO PRN (08:35)
[2018-02-27] MEDS: ENOXAPARIN 40 MG/0.4 ML SYR SUBQ SCH (08:38)
--- NOTE | 2018-02-27 10:15 | NUR ---
PT TOOK SHOWER. COUGHED AND VOMITED THE MEDIATIONS, CALLED DR JEREMY MD ORDERED IVP 0.5 MG ATIVAN.
--- NOTE | 2018-02-27 10:15 | NUR ---
CM NOTE CONCURRENT REVIEW FAXED TO [facility] [phone] CARLOS # [phone]
[2018-02-27] MEDS: LORazepam 2 MG/ML VIAL IM/IVP PRN ×3 (10:33→18:36)
--- NOTE | 2018-02-27 12:20 | NUR ---
PT REFUSED LUNCH, ONLY TAKING JUICES.
[2018-02-27] MEDS ORDERED: PANTOPRAZOLE 40 MG INJ VIAL IVP SCH ×2 (12:58→13:00)
--- NOTE | 2018-02-27 19:05 | NUR ---
PAGED DR VILLARREAL, PT REQUESTS TO SWITCH ZOFRAN TO REGLAN.
--- NOTE | 2018-02-27 19:30 | NUR ---
ENDORSED PT TO DEPUTY BRAND INSPECTOR NURSE FOR CONTINUITY OF CARE. PT IN STABLE CONDITION, RESTING IN BED.
--- NOTE | 2018-02-27 19:31 | NUR ---
RECEIVED PT IN STABLE CONDITION FROM AM NURSE. AWAKE,ALERT AND ORIENTED X4. ON TELE MONITOR. AMBULATORY. WITH HL ON THE LT FOOT G#20 . CLEAR AND PATENT. PLAN OF CARE DISCUSSED AND NEED VERBALIZED UNDERSTANDING. BED ON LOW POSITION. CALL LIGHT AND URINAL PLACED WITHIN EASY REACH. WILL CONTINUE TO MONITOR.
--- NOTE | 2018-02-27 20:18 | NUR ---
ABLE TO TALK TO DR. VILLARREAL ON PHONE. MADE AWARE ABOUT K LEVEL 3.4. WITH ORDERS.
[2018-02-27] MEDS ORDERED: POTASSIUM CHLORIDE 10 MEQ TABER PO ONE (20:20)
--- NOTE | 2018-02-27 21:30 | NUR ---
MADE ROUNDS. PT SLEEPING. NO S/S OF ANY DISCOMFORT NOTED.
--- NOTE | 2018-02-27 23:00 | NUR ---
PT SLEEPING ON AND OFF. NO C/O ANY PAIN AT THIS TIME. WILL CONTINUE TO MONITOR.
--- NOTE | 2018-02-28 01:41 | NUR ---
URINE COLLECTED FOR DRUG SCREEN. WILL SEND TO LAB.
[2018-02-28 02:07] LABS: BARBITURATE, URINE NEG. ng/ml (NEG <=200); BENZODIAZEPINE, URINE NEG. ng/mL (NEG <=200); CANNABINOID, URINE POS. ng/mL (NEG <=50); COCAINE, URINE NEG. ng/mL (NEG <=300); OPIATE, URINE POS. ng/mL (NEG <=2000); PHENCYCLIDINE SCREEN,URINE NEG. ng/mL (NEG <=25)
[2018-02-28] MEDS: METOCLOPRAMIDE 10 MG/2 ML INJ VIAL IVP PRN ×2 (03:00→10:39)
--- NOTE | 2018-02-28 03:00 | NUR ---
C/O VOMITING , MEDICATED WITH REGLAN 10M IVP ORDERED.
[2018-02-28] MEDS: MORPHINE SULFATE 2 MG/ML SYR IVP PRN ×2 (03:10→08:33)
[2018-02-28 03:43] VITALS: BP 113/76
[2018-02-28] MEDS: LORazepam 2 MG/ML VIAL IM/IVP PRN ×2 (03:47→10:40)
--- NOTE | 2018-02-28 03:50 | NUR ---
PT HAS BEEN AMBULATING BACK AND FORTH TO THE HALLWAY. VERY ANXIOUS. ATIVAN IVP GIVEN PER ORDER. WILL CONTINUE TO MONITOR.
--- NOTE | 2018-02-28 04:10 | NUR ---
MADE ROUNDS. PT ASLEEP. NO S/S OF ANY DISCOMFORT NOTED. WILL CONTINUE TO MONITOR.
[2018-02-28] MEDS: metroNIDAZOLE 500 MG/NS PREMIX 100 ML IV SCH (05:46)
--- NOTE | 2018-02-28 06:00 | NUR ---
PT SLEEPING WELL . NO S/S OF ANY DISCOMFORT NOTED.
--- NOTE | 2018-02-28 07:20 | NUR ---
RECEIVED PT REPORT FROM ECONOMIC ANALYSIS DIRECTOR NURSE. PT IS AWAKE, ALERT AND ORIENTED X4. AMBULATING IN THE HALLWAY. ON TELE MONITOR. IV ACCESS ON THE RT FOOT, 20G ASYMPTOMATIC, PATENT AND INTACT. NO S/S OF ACUTE DISTRESS NOTED.
--- NOTE | 2018-02-28 07:25 | NUR ---
ENDORSED PT IN STABLE CONDITION TO AM NURSE.
[2018-02-28 07:45] LABS: BASOPHILS % (AUTO) 0.3 % (0.0-2.0); EOSINOPHILS % (AUTO) 0.1 % (0.0-4.0); HEMATOCRIT 39.8 % (36-52); HEMOGLOBIN 13.3 g/dL (12.0-18.0); LYMPHOCYTES # (AUTO) 1.3 K/uL (2.0-11.5); LYMPHOCYTES % (AUTO) 8.6 % (20.5-51.1); MEAN CORPUSCULAR HEMOGLOBIN 30 pg (27-31); MEAN CORPUSCULAR HGB CONC 33 g/dL (33-37); MEAN CORPUSCULAR VOLUME 88.5 fL (80-94); MONOCYTES # (AUTO) 1.7 K/uL (0.8-1.0); MONOCYTES % (AUTO) 10.8 % (1.7-9.3); NEUTROPHILS # (AUTO) 12.4 K/uL (1.8-7.7); NEUTROPHILS % (AUTO) 80.2 % (42.2-75.2); PLATELET COUNT (AUTO) 291 K/uL (140-450); RED CELL DISTRIBUTION WIDTH 13.4 % (11.6-13.7); WHITE BLOOD COUNT (AUTO) 15.4 K/uL (4.8-10.8)
[2018-02-28 08:00] VITALS: BP 122/80
--- NOTE | 2018-02-28 08:05 | NUR ---
PT HAD SHOWER, BACK TO ROOM SITTING IN BED. NO S/S OF ACUTE DISTRESS, VITALS TAKEN. WHEN ASKING IF PT HAS ANY PAIN. PT C/O PAIN 9/10 AND ASKING IF ANYTHING IS DUE. WILL CHECK EMAR AND ADMINISTER PRN PAIN MEDS.
[2018-02-28 08:08] LABS: ALBUMIN 3.9 g/dL (3.4-5.0); ANION GAP 13.8 (8-16); CARBON DIOXIDE 25.8 mmol/L (21-32); CREATININE 1.2 mg/dL (0.7-1.3); MAGNESIUM 2.3 mg/dL (1.8-2.4); PHOSPHORUS 2.6 mg/dL (2.5-4.9); POTASSIUM 3.6 mmol/L (3.5-5.1); TOTAL BILIRUBIN 0.9 mg/dL (0.0-1.0)
[2018-02-28] MEDS: ENOXAPARIN 40 MG/0.4 ML SYR SUBQ SCH (08:33)
[2018-02-28] MEDS ORDERED: PANTOPRAZOLE 40 MG INJ VIAL IVP SCH (09:00)
[2018-02-28] MEDS ORDERED: TRAM50TA1 PO (09:51)
--- NOTE | 2018-02-28 10:20 | NUR ---
PT SITTING IN BED, WATCHING VIDEO FROM HIS PHONE, MADE PT AWARE OF THE DISCHARGE ORDER. PT UNDERSTANDS AND WILL CALL FAMILY FOR SHANK BREAKER.
--- NOTE | 2018-02-28 10:59 | NUR ---
PT IS WATCHING VIDEO ON CELLPHONE, LYING IN BED, NO S/S OF ACUTE DISTRESS
--- NOTE | 2018-02-28 11:50 | NUR ---
PT DISCHARGED PER MD ORDER. DISCHARGE INSTRUCTIONS AND MEDICATION TEACHING GIVEN. PT VERBALIZED UNDERSTANDING. VITALS TAKEN, BP 109/73, 99% O2 SAT, 97.7 TEMP, HR 91. RR20. IV DC'D, TIP INTACT, PRESSURE APPLIED. NO S/S OF ANY ACUTE DISTRESS. PT LEFT WITH ALL HIS BELONGINGS AND PRESCRIPTION. WALKED WITH PT TO LOBBY.
--- NOTE | 2018-02-28 13:06 | NUR ---
CM NOTE CONCURRENT REVIEW FAXED TO [facility] [phone] CARLOS # [phone]
== END 2018-02-28 11:50 | disposition home or self-care (01) | DRG 469 ==
LOC: MED 04:40 → MTU 07:01
PROVIDERS: ADMIT Hospitalist; ATTEND Hospitalist
DX: N17.0 Acute kidney failure with tubular necrosis (principal); D69.3 Immune thrombocytopenic purpura; E87.2 Acidosis; R65.10 Systemic inflammatory response syndrome (SIRS) of non-infectious origin without acute organ dysfunction; E87.1 Hypo-osmolality and hyponatremia; K50.90 Crohn's disease, unspecified, without complications; E86.0 Dehydration; E87.6 Hypokalemia; G43.A0 Cyclical vomiting, in migraine, not intractable; K21.9 Gastro-esophageal reflux disease without esophagitis; F12.90 Cannabis use, unspecified, uncomplicated; F41.0 Panic disorder [episodic paroxysmal anxiety]; G40.909 Epilepsy, unspecified, not intractable, without status epilepticus; K31.89 Other diseases of stomach and duodenum; Z90.81 Acquired absence of spleen; Z79.899 Other long term (current) drug therapy
CPT/HCPCS: 36415; 74022; 74150; 80053; 80305; 81001; 82570; 83605; 83735; 84100; 84300; 85025; 87040; 87081; 96361; 96374; 96375; 99285; C9113; J1170; J1650; J1885; J2060; J2270; J2405; J2765; J3010; J3490; J7030

== ENCOUNTER 2018-03-31 15:01 | Emergency (ER) | payer OTHER ==
[~2018-03-31] VITALS: Ht 177.8 cm; Wt 97.5 kg
[~2018-03-31 15:01] MED LIST changes: +TRAM50TA1 PO
[2018-03-31 15:06] VITALS: BP 122/82
[2018-03-31] MEDS: ONDANSETRON 4 MG/2 ML VIAL IVP SCH (15:57)
[2018-03-31] MEDS: NACL 0.9% 1,000 ML IV SCH (15:58)
[2018-03-31 15:59] LABS: BASOPHILS # (AUTO) 0.1 K/uL (0.00-0.22); BASOPHILS % (AUTO) 0.4 % (0.0-2.0); EOSINOPHILS % (AUTO) 0.1 % (0.0-4.0); HEMATOCRIT 42.9 % (36-52); HEMOGLOBIN 14.2 g/dL (12.0-18.0); LYMPHOCYTES # (AUTO) 2.6 K/uL (2.0-11.5); LYMPHOCYTES % (AUTO) 15.7 % (20.5-51.1); MEAN CORPUSCULAR HEMOGLOBIN 30 pg (27-31); MEAN CORPUSCULAR HGB CONC 33 g/dL (33-37); MEAN CORPUSCULAR VOLUME 88.8 fL (80-94); MONOCYTES # (AUTO) 2.2 K/uL (0.8-1.0); MONOCYTES % (AUTO) 12.9 % (1.7-9.3); NEUTROPHILS # (AUTO) 11.8 K/uL (1.8-7.7); NEUTROPHILS % (AUTO) 70.9 % (42.2-75.2); PLATELET COUNT (AUTO) 366 K/uL (140-450); RED BLOOD CELL COUNT(AUTO) 4.83 MIL/uL (4.20-6.10); RED CELL DISTRIBUTION WIDTH 13.3 % (11.6-13.7); WHITE BLOOD COUNT (AUTO) 16.7 K/uL (4.8-10.8)
[2018-03-31] MEDS: MORPHINE SULFATE 4 MG/ML SYR IVP SCH (16:02)
[2018-03-31] MEDS: MORPHINE SULFATE 4 MG/ML SYR IVP ONE (16:06)
[2018-03-31] MEDS: ONDANSETRON 4 MG/2 ML VIAL IVP ONE (16:06)
[2018-03-31 16:30] LABS: ANION GAP 14.5 (8-16); CARBON DIOXIDE 24.8 mmol/L (21-32); POTASSIUM 3.3 mmol/L (3.5-5.1)
[2018-03-31 16:31] LABS: CREATININE 1.3 mg/dL (0.7-1.3); TOTAL BILIRUBIN 0.9 mg/dL (0.0-1.0)
[2018-03-31 16:32] LABS: ALBUMIN 4.5 g/dL (3.4-5.0)
[2018-03-31 16:55] VITALS: BP 120/80
== END 2018-03-31 16:55 | disposition home or self-care (01) ==
LOC: MED 15:01
DX: R10.84 Generalized abdominal pain (principal); R11.2 Nausea with vomiting, unspecified; R19.7 Diarrhea, unspecified; K21.9 Gastro-esophageal reflux disease without esophagitis
CPT/HCPCS: 36415; 74176; 80053; 83690; 85025; 96361; 96374; 96375; 99285; J2270; J2405; J7030

== ENCOUNTER 2018-04-15 15:51 | Emergency (ER) | payer OTHER ==
[~2018-04-15] VITALS: Ht 177.8 cm; Wt 93.0 kg
[2018-04-15 16:13] VITALS: BP 112/77
--- NOTE | 2018-04-15 16:54 | NUR ---
PT AMBULATES TO BED 7
--- NOTE | 2018-04-15 17:00 | NUR ---
32YO M bib self with c/o constant generalized abd pain and bl flank x 10 days. Patient sts intermittent n/v/d and constipation. Last Bm 2-3 days. Non bloody emesis. Hx--GERD, RENAL FAILURE, SZ, CROHN'S DISEASE, ITP RX--ZOFRAN (unknown frequency), REGLAN (unknown frequency), PROTONIX (unknown frequency), MOTRIN (unknown frequency), NORCO #5 (unknown frequency), Pepcid 40mg qday.
--- NOTE | 2018-04-15 17:33 | NUR ---
Patient being evaluated by physician at bedside.
[2018-04-15] MEDS ORDERED: FAMOTIDINE 20 MG TAB PO ONE (17:40)
[2018-04-15] MEDS ORDERED: DIPHENOXYLATE /ATROPINE 2.5 MG TAB PO ONE (17:40)
[2018-04-15] MEDS ORDERED: ONDANSETRON 4 MG ODT PO ONE (17:40)
[2018-04-15 18:18] LABS: BASOPHILS # (AUTO) 0.1 K/uL (0.00-0.22); BASOPHILS % (AUTO) 0.6 % (0.0-2.0); EOSINOPHILS # (AUTO) 0.2 K/uL (0-0.4); EOSINOPHILS % (AUTO) 1.2 % (0.0-4.0); HEMATOCRIT 44.7 % (36-52); LYMPHOCYTES # (AUTO) 2.8 K/uL (2.0-11.5); LYMPHOCYTES % (AUTO) 19.2 % (20.5-51.1); MEAN CORPUSCULAR HEMOGLOBIN 30 pg (27-31); MEAN CORPUSCULAR HGB CONC 34 g/dL (33-37); MEAN CORPUSCULAR VOLUME 88.3 fL (80-94); MONOCYTES % (AUTO) 13.9 % (1.7-9.3); NEUTROPHILS # (AUTO) 9.4 K/uL (1.8-7.7); NEUTROPHILS % (AUTO) 65.1 % (42.2-75.2); PLATELET COUNT (AUTO) 345 K/uL (140-450); RED BLOOD CELL COUNT(AUTO) 5.06 MIL/uL (4.20-6.10); WHITE BLOOD COUNT (AUTO) 14.5 K/uL (4.8-10.8)
[2018-04-15 18:28] LABS: CARBON DIOXIDE 30.5 mmol/L (21-32); CREATININE 1.5 mg/dL (0.7-1.3); POTASSIUM 3.5 mmol/L (3.5-5.1)
[2018-04-15 18:34] LABS: ALBUMIN 4.6 g/dL (3.4-5.0); TOTAL BILIRUBIN 0.6 mg/dL (0.0-1.0)
[2018-04-15 19:03] VITALS: BP 115/70
--- NOTE | 2018-04-15 19:03 | NUR ---
Patient discharged with v/s stable. Written and verbal after care instructions given and explained. Patient alert, oriented and verbalized understanding of instructions. Ambulatory with steady gait. All questions addressed prior to discharge. ID band removed. Patient advised to follow up with PMD. Rx of IVON WELCH given. Patient educated on indication of medication including possible reaction and side effects. Opportunity to ask questions provided and answered.
== END 2018-04-15 19:03 | disposition home or self-care (01) ==
LOC: MED 15:51
DX: R10.84 Generalized abdominal pain (principal); R11.10 Vomiting, unspecified; R19.7 Diarrhea, unspecified; K21.9 Gastro-esophageal reflux disease without esophagitis; N19 Unspecified kidney failure; Z90.81 Acquired absence of spleen; Z79.1 Long term (current) use of non-steroidal anti-inflammatories (NSAID)
CPT/HCPCS: 36415; 80053; 83690; 85025; 99284; S0119; 81002

== ENCOUNTER 2018-04-17 06:17 | Emergency (ER) | payer OTHER ==
[~2018-04-17] VITALS: Ht 177.8 cm; Wt 93.4 kg
[2018-04-17 06:18] VITALS: BP 144/81
--- NOTE | 2018-04-17 06:23 | NUR ---
PT TAKEN TO BED 2
--- NOTE | 2018-04-17 06:45 | NUR ---
Dr. Leong evaluating patient
[2018-04-17] MEDS ORDERED: NACL 0.9% 1,000 ML IV ONE (06:55)
[2018-04-17] MEDS ORDERED: MORPHINE SULFATE 4 MG/ML SYR IVP ONE (06:55)
[2018-04-17] MEDS ORDERED: LEVOFLOXACIN 500 MG/D5W PREMIX 100 ML IV ONE (06:55)
[2018-04-17] MEDS ORDERED: ONDANSETRON 4 MG/2 ML VIAL IVP ONE (07:15)
--- NOTE | 2018-04-17 07:22 | NUR ---
PT BIB SELF C/O ABD PAIN AND CONSTIPATION FOR PAST 10 DAYS. ABD IS FLAT, SOFT, TENDER GENERALIZED, ACTIVE BS X4. SKIN TO STOMACH AREA IS REDDENED, PT STATES SKIN IS NORMALLY LIKE THAT. PT IS SITTING IN BED RESTLESS, CONTINUALLY CHANGING POSITION, FAMILY AT BEDSIDE. PMH IBS
--- NOTE | 2018-04-17 07:22 | NUR ---
Pt refused CT scan, stated he has had to many in the past and did not want another one
--- NOTE | 2018-04-17 07:23 | NUR ---
REPORT GIVEN TO JOSE, TRANSFER OF CARE AT THIS TIME.
--- NOTE | 2018-04-17 07:24 | NUR ---
BED [address]
[2018-04-17] MEDS ORDERED: PROCHLORPERAZINE 10 MG/2 ML VIAL IM ONE (08:10)
[2018-04-17] MEDS ORDERED: LORazepam 1 MG TAB PO ONE (08:10)
[2018-04-17] MEDS ORDERED: diphenhydrAMINE 50 MG/ML VIAL IM ONE (08:10)
--- NOTE | 2018-04-17 08:37 | NUR ---
PT LEFT WITHOUT D/C PAPERWORK, EDUCATION, ORDERS.
== END 2018-04-17 08:37 | disposition home or self-care (01) ==
LOC: MED 06:17
DX: R10.84 Generalized abdominal pain (principal); R11.2 Nausea with vomiting, unspecified; R03.0 Elevated blood-pressure reading, without diagnosis of hypertension; K21.9 Gastro-esophageal reflux disease without esophagitis; Z79.899 Other long term (current) drug therapy
CPT/HCPCS: 96365; 96372; 96375; 99284; J0780; J1200; J1956; J2270; J2405; J7030; 96361

== ENCOUNTER 2018-04-19 06:33 | Emergency (ER) | payer OTHER ==
[~2018-04-19] VITALS: Ht 177.8 cm; Wt 93.4 kg
--- NOTE | 2018-04-19 06:50 | NUR ---
Patient ambulated to bed 8 with family. RN evaluating patient at bedside.
[2018-04-19 06:52] VITALS: BP 145/89
--- NOTE | 2018-04-19 06:59 | NUR ---
PATIENT PRESENTS TO ED WITH c/o lower abd pain/vomitting. PT SEEN HERE IN THIS ER ON 04/17 PT SKIN IS PINK/WARM/DRY; AAOX4 WITH EVEN AND STEADY GAIT; LUNGS CLEAR BL; HR EVEN AND REGULAR; PATIENT STATES PAIN OF 10/10 AT THIS TIME; VSS; PATIENT POSITIONED FOR COMFORT; HOB ELEVATED; BEDRAILS UP X2; BED DOWN. ER MD MADE AWARE OF PT STATUS.
--- NOTE | 2018-04-19 07:11 | NUR ---
RECIEVED REPORT FROM CARLA WU.
[2018-04-19] MEDS ORDERED: ONDANSETRON 4 MG/2 ML VIAL IVP ONE (07:25)
[2018-04-19] MEDS ORDERED: KETOROLAC 30 MG/ML VIAL IVP ONE (07:25)
[2018-04-19] MEDS ORDERED: KETOROLAC 30 MG/ML VIAL ONE (07:34)
[2018-04-19] MEDS ORDERED: ONDANSETRON 4 MG/2 ML VIAL ONE (07:35)
[2018-04-19] MEDS: NACL 0.9% 1,000 ML IV SCH ×2 (08:08→09:27)
[2018-04-19 08:19] LABS: BASOPHILS # (AUTO) 0.1 K/uL (0.00-0.22); BASOPHILS % (AUTO) 0.4 % (0.0-2.0); EOSINOPHILS % (AUTO) 0.1 % (0.0-4.0); HEMATOCRIT 41.5 % (36-52); HEMOGLOBIN 14.3 g/dL (12.0-18.0); LYMPHOCYTES # (AUTO) 1.7 K/uL (2.0-11.5); LYMPHOCYTES % (AUTO) 12.7 % (20.5-51.1); MEAN CORPUSCULAR HEMOGLOBIN 30 pg (27-31); MEAN CORPUSCULAR HGB CONC 35 g/dL (33-37); MEAN CORPUSCULAR VOLUME 86.4 fL (80-94); MONOCYTES # (AUTO) 2.2 K/uL (0.8-1.0); MONOCYTES % (AUTO) 16.4 % (1.7-9.3); NEUTROPHILS # (AUTO) 9.3 K/uL (1.8-7.7); NEUTROPHILS % (AUTO) 70.4 % (42.2-75.2); PLATELET COUNT (AUTO) 337 K/uL (140-450); RED CELL DISTRIBUTION WIDTH 12.9 % (11.6-13.7); WHITE BLOOD COUNT (AUTO) 13.2 K/uL (4.8-10.8)
[2018-04-19] MEDS ORDERED: LORazepam 2 MG/ML VIAL IVP ONE (08:25)
[2018-04-19] MEDS ORDERED: HALOPERIDOL IM 5 MG/ML VIAL IM ONE (08:25)
[2018-04-19 08:26] LABS: APPEARANCE,URINE CLEAR (CLEAR); BILIRUBIN,URINE NEGATIVE (NEGATIVE); BLOOD, URINE NEGATIVE (NEGATIVE); COLOR,URINE YELLOW (YELLOW); LEUKOCYTE ESTERASE ,URINE NEGATIVE (NEGATIVE); NITRITE, URINE NEGATIVE (NEGATIVE); UGLUCOSE NEGATIVE (NEGATIVE)
--- NOTE | 2018-04-19 08:30 | NUR ---
Patient appears to be resting comfortably in bed. Vital Signs within normal limits. Respirations even and unlabored.
[2018-04-19] MEDS ORDERED: HALOPERIDOL IM 5 MG/ML VIAL ONE (08:31)
[2018-04-19 08:32] LABS: ALBUMIN 4.5 g/dL (3.4-5.0); CARBON DIOXIDE 26.8 mmol/L (21-32); CREATININE 1.7 mg/dL (0.7-1.3); TOTAL BILIRUBIN 1.2 mg/dL (0.0-1.0)
[2018-04-19] MEDS ORDERED: LORazepam 2 MG/ML VIAL ONE (08:33)
[2018-04-19 08:37] LABS: POTASSIUM 2.8 mmol/L (3.5-5.1)
[2018-04-19 08:38] LABS: RBC,URINE NONE SEEN /HPF (0-5); WBC,URINE 0-5 (RARE) /HPF (0-5)
[2018-04-19 08:44] LABS: BARBITURATE, URINE NEG. ng/ml (NEG <=200); BENZODIAZEPINE, URINE NEG. ng/mL (NEG <=200); CANNABINOID, URINE POS. ng/mL (NEG <=50); COCAINE, URINE NEG. ng/mL (NEG <=300); OPIATE, URINE NEG. ng/mL (NEG <=2000); PHENCYCLIDINE SCREEN,URINE NEG. ng/mL (NEG <=25)
[2018-04-19] MEDS ORDERED: NACL 0.9% 1,000 ML IV SCH (08:53)
[2018-04-19] MEDS ORDERED: POTASSIUM CHLORIDE 10 MEQ TABER PO ONE ×2 (08:55→09:09)
[2018-04-19] MEDS ORDERED: MORPHINE SULFATE 4 MG/ML SYR IVP ONE (08:55)
[2018-04-19] MEDS ORDERED: KCL 20 MEQ/WATER INJ PREMIX 100 ML IV ONE ×2 (08:55→09:11)
[2018-04-19] MEDS ORDERED: MORPHINE SULFATE 4 MG/ML SYR ONE (09:12)
[2018-04-19 09:40] VITALS: BP 140/85
--- NOTE | 2018-04-19 09:40 | NUR ---
PATIENT ELOPED FROM FACILITY. DISCHARGE INSTRUCTIONS NOT GIVEN TO PATIENT. DR. SHEEHAN NOTIFIED.
== END 2018-04-19 09:40 | disposition left against medical advice (07) ==
LOC: MED 06:33
DX: R10.84 Generalized abdominal pain (principal); E87.6 Hypokalemia; F12.10 Cannabis abuse, uncomplicated; K21.9 Gastro-esophageal reflux disease without esophagitis; Z79.1 Long term (current) use of non-steroidal anti-inflammatories (NSAID)
CPT/HCPCS: 36415; 80053; 80305; 81001; 82150; 83690; 85025; 96365; 96372; 96375; 99284; J1630; J1885; J2060; J2270; J2405; J3480

== ENCOUNTER 2018-05-06 13:06 | Emergency (ER) | payer OTHER ==
[~2018-05-06] VITALS: Ht 177.8 cm; Wt 88.7 kg
[2018-05-06 13:29] VITALS: BP 126/81
--- NOTE | 2018-05-06 13:32 | NUR ---
PT PRESENTED ER WITH C/O PAIN TO THE ABD X 3 DAYS. PT STATED THAT HE HAS BEEN HAVING N/V BUT DENIES DIARRHEA. PT PAIN LEVEL IS 10/10 AT THIS TIME. PT HAS A HX OF IBS. BOWL SOUNDS ACTIVE IN ALL 4 Q.PT IS A/0 X 4. SKIN IS PINK/WARM/DRY; VSS; PATIENT POSITIONED FOR COMFORT; HOB ELEVATED; BEDRAILS UP X2; BED DOWN. ER MD MADE AWARE OF PT STATUS.
[2018-05-06] MEDS ORDERED: KETOROLAC 30 MG/ML VIAL IVP ONE (14:15)
[2018-05-06] MEDS ORDERED: NACL 0.9% 1,000 ML IV ONE ×2 (14:15)
[2018-05-06] MEDS ORDERED: diphenhydrAMINE 50 MG/ML VIAL IVP ONE (14:15)
[2018-05-06] MEDS ORDERED: NACL 0.9% 1,000 ML IV SCH (14:15)
[2018-05-06] MEDS ORDERED: HYDROmorphone PFS 2 MG/ML SYR IVP ONE (14:15)
[2018-05-06] MEDS ORDERED: PROMETHAZINE 25 MG/ML VIAL IM ONE (14:15)
[2018-05-06] MEDS ORDERED: HALOPERIDOL IM 5 MG/ML VIAL IM ONE (14:15)
--- NOTE | 2018-05-06 14:40 | NUR ---
PT. RESTING COMFORTABLY IN BED, RR EVEN AND UNLABORED. VSS. WILL CONTINUE TO MONITOR.
[2018-05-06 14:41] LABS: BASOPHILS # (AUTO) 0.1 K/uL (0.00-0.22); BASOPHILS % (AUTO) 0.8 % (0.0-2.0); EOSINOPHILS # (AUTO) 0.1 K/uL (0-0.4); EOSINOPHILS % (AUTO) 0.6 % (0.0-4.0); HEMATOCRIT 45.2 % (36-52); HEMOGLOBIN 15.3 g/dL (12.0-18.0); LYMPHOCYTES # (AUTO) 2.3 K/uL (2.0-11.5); LYMPHOCYTES % (AUTO) 19.1 % (20.5-51.1); MEAN CORPUSCULAR HEMOGLOBIN 30 pg (27-31); MEAN CORPUSCULAR HGB CONC 34 g/dL (33-37); MEAN CORPUSCULAR VOLUME 88.3 fL (80-94); MONOCYTES # (AUTO) 1.2 K/uL (0.8-1.0); MONOCYTES % (AUTO) 10.2 % (1.7-9.3); NEUTROPHILS # (AUTO) 8.4 K/uL (1.8-7.7); NEUTROPHILS % (AUTO) 69.3 % (42.2-75.2); PLATELET COUNT (AUTO) 330 K/uL (140-450); RED BLOOD CELL COUNT(AUTO) 5.12 MIL/uL (4.20-6.10); RED CELL DISTRIBUTION WIDTH 13.4 % (11.6-13.7); WHITE BLOOD COUNT (AUTO) 12.1 K/uL (4.8-10.8)
[2018-05-06 14:57] LABS: PROTHROMBIN TIME 10.1 secs (10.8-13.4)
[2018-05-06 15:06] LABS: POTASSIUM 3.4 mmol/L (3.5-5.1); SODIUM SERUM 139 mmol/L (136-145)
[2018-05-06 15:07] LABS: ALBUMIN 4.4 g/dL (3.4-5.0); AMYLASE 46 U/L (25-115); ANION GAP 14.3 (8-16); ASPARTATE AMINOTRANSFERASE 14 U/L (15-37); CARBON DIOXIDE 28.1 mmol/L (21-32); CHLORIDE 100 mmol/L (98-107); CREATININE 1.2 mg/dL (0.7-1.3); GFR ARICAN-AMERICAN 89 mL/min (>90); GLUCOSE 100 mg/dL (74-106); MAGNESIUM 2.1 mg/dL (1.8-2.4); TOTAL BILIRUBIN 0.9 mg/dL (0.0-1.0); UREA NITROGEN, BLOOD 14 mg/dL (7-18)
[2018-05-06 15:08] LABS: ACETAMINOPHEN < 0.5 ug/ml (10-30); LIPASE 92 U/L (73-393); SALICYLATE < 2.8 mg/dL (2.8-20.0)
[2018-05-06 15:12] LABS: ACETONE, SERUM NEGATIVE (NEGATIVE)
[2018-05-06 15:12] LABS: BARBITURATE, URINE NEG. ng/ml (NEG <=200); BENZODIAZEPINE, URINE NEG. ng/mL (NEG <=200); CANNABINOID, URINE POS. ng/mL (NEG <=50); COCAINE, URINE NEG. ng/mL (NEG <=300); OPIATE, URINE NEG. ng/mL (NEG <=2000); PHENCYCLIDINE SCREEN,URINE NEG. ng/mL (NEG <=25)
[2018-05-06 15:20] LABS: APPEARANCE,URINE SLIGHTLY CLOUDY (CLEAR); COLOR,URINE YELLOW (YELLOW)
[2018-05-06 15:21] LABS: BLOOD, URINE NEGATIVE (NEGATIVE); UGLUCOSE NEGATIVE (NEGATIVE)
[2018-05-06 15:23] LABS: BILIRUBIN,URINE NEGATIVE (NEGATIVE); LEUKOCYTE ESTERASE ,URINE NEGATIVE (NEGATIVE); NITRITE, URINE NEGATIVE (NEGATIVE)
[2018-05-06 15:28] LABS: RBC,URINE 0-5 (RARE) /HPF (0-5); URINE AMORPHOUS URATE 3+ /HPF (None Seen); WBC,URINE 0-5 (RARE) /HPF (0-5); YEAST,URINE None Seen /HPF (None Seen)
--- NOTE | 2018-05-06 16:20 | NUR ---
PT. TAKEN TO CT SCAN VIA WHEELCHAIR.
--- NOTE | 2018-05-06 16:32 | NUR ---
RETURNED FROM CT VIA WC
[2018-05-06 17:56] VITALS: BP 122/80
--- NOTE | 2018-05-06 17:56 | NUR ---
Patient discharged with v/s stable. Written and verbal after care instructions given and explained. Patient alert, oriented and verbalized understanding of instructions. Ambulatory with steady gait. All questions addressed prior to discharge. ID band removed. Patient advised to follow up with PMD. Rx of HALOPERIDOL AND PHENERGAN WAS given. Patient educated on indication of medication including possible reaction and side effects. Opportunity to ask questions provided and answered.
== END 2018-05-06 17:56 | disposition home or self-care (01) ==
LOC: MED 13:06
DX: F12.188 Cannabis abuse with other cannabis-induced disorder (principal); G43.A0 Cyclical vomiting, in migraine, not intractable; K21.9 Gastro-esophageal reflux disease without esophagitis; Z79.899 Other long term (current) drug therapy; Z79.1 Long term (current) use of non-steroidal anti-inflammatories (NSAID)
CPT/HCPCS: 36415; 74177; 80053; 80305; 81001; 82009; 82150; 83605; 83690; 83735; 85025; 85610; 96361; 96372; 96374; 96375; 99285; G0480; G0482; J1170; J1200; J1630; J1885; J2550; J7030; Q9967

== ENCOUNTER 2018-05-24 17:44 | Inpatient (IN) | payer OTHER ==
[~2018-05-24] VITALS: Ht 177.8 cm; Wt 90.7 kg
[2018-05-24 17:53] VITALS: BP 151/98
[2018-05-24] MEDS ORDERED: LORazepam 2 MG/ML VIAL IVP ONE (19:45)
[2018-05-24] MEDS ORDERED: METOCLOPRAMIDE 10 MG/2 ML INJ VIAL IVP ONE (19:45)
[2018-05-24] MEDS ORDERED: fentaNYL 0.05 MG/ML VIAL IVP ONE (19:45)
[2018-05-24 20:00] VITALS: BP 130/65
[2018-05-24] MEDS: MORPHINE SULFATE 4 MG/ML SYR IVP PRN (20:41)
[2018-05-24] MEDS: DEXT 5% / NACL 0.45% 1,000 ML IV SCH (21:16)
[2018-05-24] MEDS ORDERED: LORazepam 2 MG/ML VIAL IVP PRN (21:25)
[2018-05-24] MEDS: FAMOTIDINE 20 MG/2 ML VIAL IV PRN (21:52)
[2018-05-24] MEDS: HYDROmorphone 1 MG/ML AMP IVP PRN (21:53)
[2018-05-24 22:00] LABS: BASOPHILS # (AUTO) 0.1 K/uL (0.00-0.22); BASOPHILS % (AUTO) 0.3 % (0.0-2.0); EOSINOPHILS # (AUTO) 0.1 K/uL (0-0.4); EOSINOPHILS % (AUTO) 0.5 % (0.0-4.0); HEMATOCRIT 41.9 % (36-52); HEMOGLOBIN 13.8 g/dL (12.0-18.0); LYMPHOCYTES % (AUTO) 4.5 % (20.5-51.1); MEAN CORPUSCULAR HEMOGLOBIN 29 pg (27-31); MEAN CORPUSCULAR HGB CONC 33 g/dL (33-37); MEAN CORPUSCULAR VOLUME 88.6 fL (80-94); MONOCYTES # (AUTO) 1.1 K/uL (0.8-1.0); MONOCYTES % (AUTO) 5.3 % (1.7-9.3); NEUTROPHILS # (AUTO) 19.3 K/uL (1.8-7.7); PLATELET COUNT (AUTO) 310 K/uL (140-450); RED BLOOD CELL COUNT(AUTO) 4.73 MIL/uL (4.20-6.10); RED CELL DISTRIBUTION WIDTH 13.2 % (11.6-13.7); WHITE BLOOD COUNT (AUTO) 21.6 K/uL (4.8-10.8)
[2018-05-24 22:03] LABS: APPEARANCE,URINE CLEAR (CLEAR); BLOOD, URINE NEGATIVE (NEGATIVE); COLOR,URINE YELLOW (YELLOW); LEUKOCYTE ESTERASE ,URINE NEGATIVE (NEGATIVE); NITRITE, URINE NEGATIVE (NEGATIVE); UGLUCOSE NEGATIVE (NEGATIVE)
[2018-05-24 22:04] LABS: BILIRUBIN,URINE SMALL (NEGATIVE)
[2018-05-24 22:06] LABS: RBC,URINE 0-5 (RARE) /HPF (0-5); WBC,URINE 0-5 (RARE) /HPF (0-5)
[2018-05-24 22:07] LABS: HYALINE CASTS, URINE 0-2 /LPF (None Seen)
[2018-05-24 22:31] LABS: NEUTROPHILS % (AUTO) 89.4 % (42.2-75.2)
[2018-05-25] MEDS ORDERED: INFLUENZA VIRUS VACCINE QUAD 0.5 ML SYR IMVAC PRN (01:35)
[2018-05-25] MEDS: HYDROmorphone 1 MG/ML AMP IVP PRN ×4 (02:04→20:14)
[2018-05-25] MEDS: ONDANSETRON 4 MG/2 ML VIAL IVP PRN ×2 (04:14→08:34)
[2018-05-25] MEDS: METOCLOPRAMIDE 10 MG/2 ML INJ VIAL IVP PRN ×2 (06:05→22:46)
[2018-05-25 08:00] VITALS: BP 124/64
[2018-05-25] MEDS: LORazepam 2 MG/ML VIAL IVP PRN ×2 (08:34→17:11)
[2018-05-25] MEDS: DEXT 5% / NACL 0.45% 1,000 ML IV SCH ×2 (09:15→11:22)
[2018-05-25 09:32] LABS: HEMATOCRIT 41.7 % (36-52); HEMOGLOBIN 13.7 g/dL (12.0-18.0); MEAN CORPUSCULAR HEMOGLOBIN 29 pg (27-31); MEAN CORPUSCULAR HGB CONC 33 g/dL (33-37); MEAN CORPUSCULAR VOLUME 88.9 fL (80-94); PLATELET COUNT (AUTO) 319 K/uL (140-450); RED BLOOD CELL COUNT(AUTO) 4.69 MIL/uL (4.20-6.10); RED CELL DISTRIBUTION WIDTH 13.4 % (11.6-13.7); WHITE BLOOD COUNT (AUTO) 28.4 K/uL (4.8-10.8)
[2018-05-25 09:48] LABS: ALBUMIN 3.9 g/dL (3.4-5.0); ANION GAP 12.4 (8-16); CARBON DIOXIDE 28.6 mmol/L (21-32); CREATININE 1.1 mg/dL (0.7-1.3); TOTAL BILIRUBIN 1.1 mg/dL (0.0-1.0)
[2018-05-25 10:36] LABS: LYMPHOCYTES % (MANUAL) 10 % (20-46); MONOCYTES % (MANUAL) 7 % (5-12)
[2018-05-25] MEDS ORDERED: POTASSIUM CHLORIDE 40 MEQ, LIDOCAINE MPF 1% - 5 mL VIAL 25 MG in NACL 0.9% 250 ML IV SCH (15:00)
[2018-05-25] MEDS ORDERED: KETOROLAC 30 MG/ML VIAL IVP PRN (15:00)
[2018-05-25] MEDS: MORPHINE SULFATE 4 MG/ML SYR IVP PRN (15:51)
[2018-05-25 16:00] VITALS: BP 102/56
[2018-05-25] MEDS: FAMOTIDINE 20 MG/2 ML VIAL IV PRN (17:13)
[2018-05-25 23:58] VITALS: BP 122/84
[2018-05-26] MEDS: HYDROmorphone 1 MG/ML AMP IVP PRN ×6 (00:23→21:31)
[2018-05-26] MEDS: FAMOTIDINE 20 MG/2 ML VIAL IV PRN (05:40)
[2018-05-26] MEDS: LORazepam 2 MG/ML VIAL IVP PRN ×2 (06:04→13:47)
[2018-05-26] MEDS: METOCLOPRAMIDE 10 MG/2 ML INJ VIAL IVP PRN ×2 (07:53→15:58)
[2018-05-26 08:00] VITALS: BP 107/52
[2018-05-26 09:23] LABS: HEMATOCRIT 39.5 % (36-52); MEAN CORPUSCULAR HEMOGLOBIN 29 pg (27-31); MEAN CORPUSCULAR HGB CONC 33 g/dL (33-37); MEAN CORPUSCULAR VOLUME 89.2 fL (80-94); PLATELET COUNT (AUTO) 293 K/uL (140-450); RED BLOOD CELL COUNT(AUTO) 4.43 MIL/uL (4.20-6.10); RED CELL DISTRIBUTION WIDTH 13.5 % (11.6-13.7); WHITE BLOOD COUNT (AUTO) 26.1 K/uL (4.8-10.8)
[2018-05-26 09:38] LABS: LYMPHOCYTES % (MANUAL) 8 % (20-46); MONOCYTES % (MANUAL) 8 % (5-12)
[2018-05-26 09:50] LABS: ANION GAP 15.6 (8-16); CARBON DIOXIDE 25.4 mmol/L (21-32); CREATININE 1.1 mg/dL (0.7-1.3)
[2018-05-26] MEDS ORDERED: FAMOTIDINE 20 MG/2 ML VIAL IV PRN (11:14)
[2018-05-26] MEDS: KCL 20 MEQ/WATER INJ PREMIX 200 ML IV SCH ×2 (12:52→15:17)
[2018-05-26 16:00] VITALS: BP 140/90
[2018-05-27] VITALS: BP 113/61
[2018-05-27] MEDS: LORazepam 2 MG/ML VIAL IVP PRN ×2 (00:02→09:38)
[2018-05-27] MEDS: HYDROmorphone 1 MG/ML AMP IVP PRN ×4 (01:32→13:37)
[2018-05-27] MEDS: METOCLOPRAMIDE 10 MG/2 ML INJ VIAL IVP PRN (06:16)
[2018-05-27 07:24] LABS: BASOPHILS # (AUTO) 0.1 K/uL (0.00-0.22); BASOPHILS % (AUTO) 0.8 % (0.0-2.0); EOSINOPHILS # (AUTO) 0.1 K/uL (0-0.4); EOSINOPHILS % (AUTO) 0.5 % (0.0-4.0); HEMATOCRIT 39.3 % (36-52); LYMPHOCYTES # (AUTO) 2.1 K/uL (2.0-11.5); LYMPHOCYTES % (AUTO) 16.2 % (20.5-51.1); MEAN CORPUSCULAR HEMOGLOBIN 29 pg (27-31); MEAN CORPUSCULAR HGB CONC 33 g/dL (33-37); MONOCYTES # (AUTO) 1.9 K/uL (0.8-1.0); MONOCYTES % (AUTO) 14.6 % (1.7-9.3); NEUTROPHILS # (AUTO) 8.9 K/uL (1.8-7.7); NEUTROPHILS % (AUTO) 67.9 % (42.2-75.2); PLATELET COUNT (AUTO) 312 K/uL (140-450); RED BLOOD CELL COUNT(AUTO) 4.41 MIL/uL (4.20-6.10); RED CELL DISTRIBUTION WIDTH 13.4 % (11.6-13.7); WHITE BLOOD COUNT (AUTO) 13.2 K/uL (4.8-10.8)
[2018-05-27 08:00] VITALS: BP 132/79
[2018-05-27 08:34] LABS: ANION GAP 12.6 (8-16); CARBON DIOXIDE 28.8 mmol/L (21-32); POTASSIUM 3.4 mmol/L (3.5-5.1)
[2018-05-27] MEDS ORDERED: POTASSIUM CHLORIDE 10 MEQ TABER PO SCH ×2 (14:00)
== END 2018-05-27 14:35 | disposition home or self-care (01) | DRG 54 ==
LOC: MED 17:44 → MTU 20:02
PROVIDERS: ADMIT Hospitalist; ATTEND Hospitalist
DX: G43.A0 Cyclical vomiting, in migraine, not intractable (principal); R65.10 Systemic inflammatory response syndrome (SIRS) of non-infectious origin without acute organ dysfunction; K31.89 Other diseases of stomach and duodenum; E86.0 Dehydration; K58.9 Irritable bowel syndrome, unspecified; G40.909 Epilepsy, unspecified, not intractable, without status epilepticus; E87.6 Hypokalemia; K21.9 Gastro-esophageal reflux disease without esophagitis; Z90.81 Acquired absence of spleen; Z23 Encounter for immunization; R79.89 Other specified abnormal findings of blood chemistry
CPT/HCPCS: 36415; 74018; 76770; 80048; 80053; 81001; 84300; 85025; 87081; 90658; 96374; 96375; 99285; J1170; J1885; J2001; J2060; J2270; J2405; J2765; J3010; J3480; J3490; J7030; Q0092

== ENCOUNTER 2018-07-29 09:37 | Inpatient (IN) | payer OTHER ==
[~2018-07-29] VITALS: Ht 177.8 cm; Wt 72.1 kg
[2018-07-29 09:46] VITALS: BP 111/74
--- NOTE | 2018-07-29 09:53 | NUR ---
PATIENT AMBULATED TO BED 8 AT THIS TIME.
[2018-07-29] MEDS ORDERED: HALOPERIDOL IM 5 MG/ML VIAL IM ONE (11:20)
[2018-07-29] MEDS ORDERED: ONDANSETRON 4 MG/2 ML VIAL IVP ONE (11:20)
[2018-07-29] MEDS ORDERED: PANTOPRAZOLE 40 MG INJ VIAL IVP ONE (11:20)
[2018-07-29] MEDS ORDERED: NACL 0.9% 1,000 ML IV ONE ×2 (11:20→12:55)
--- NOTE | 2018-07-29 11:30 | NUR ---
PER DR FLORES, OK TO INSERT IV IN THE LEG
--- NOTE | 2018-07-29 11:53 | NUR ---
PATIENT REFUSED TO RECEIVED ORDERED HALDOL. MADE DR FLORES AWARE. PATIENT ASKING FOR PAIN MEDICICE. DR YU SPEAK WITH THE PATIENT
[2018-07-29 11:59] LABS: HEMATOCRIT 48.3 % (36-52); HEMOGLOBIN 16.2 g/dL (12.0-18.0); MEAN CORPUSCULAR HEMOGLOBIN 29 pg (27-31); MEAN CORPUSCULAR HGB CONC 34 g/dL (33-37); MEAN CORPUSCULAR VOLUME 86.7 fL (80-94); PLATELET COUNT (AUTO) 365 K/uL (140-450); RED BLOOD CELL COUNT(AUTO) 5.57 MIL/uL (4.20-6.10); RED CELL DISTRIBUTION WIDTH 13.1 % (11.6-13.7); WHITE BLOOD COUNT (AUTO) 21.3 K/uL (4.8-10.8)
[2018-07-29] MEDS ORDERED: LORazepam 2 MG/ML VIAL IVP ONE (12:00)
[2018-07-29 12:02] LABS: ANION GAP 21.5 (8-16); CARBON DIOXIDE 21.7 mmol/L (21-32); CREATININE 3.9 mg/dL (0.7-1.3); POTASSIUM 3.2 mmol/L (3.5-5.1)
[2018-07-29 12:08] LABS: ALBUMIN 5.1 g/dL (3.4-5.0)
[2018-07-29 12:54] LABS: LYMPHOCYTES % (MANUAL) 7 % (20-46); MONOCYTES % (MANUAL) 7 % (5-12)
[2018-07-29] MEDS ORDERED: MORPHINE SULFATE 4 MG/ML SYR IVP ONE ×2 (12:55→14:50)
[2018-07-29] MEDS: NACL 0.9% 1,000 ML IV SCH (14:29)
[2018-07-29] MEDS ORDERED: ACETAMINOPHEN 325 MG TAB PO PRN (14:30)
[2018-07-29 15:20] LABS: BARBITURATE, URINE NEG. ng/ml (NEG <=200); BENZODIAZEPINE, URINE NEG. ng/mL (NEG <=200); CANNABINOID, URINE POS. ng/mL (NEG <=50); COCAINE, URINE NEG. ng/mL (NEG <=300); OPIATE, URINE POS. ng/mL (NEG <=2000); PHENCYCLIDINE SCREEN,URINE NEG. ng/mL (NEG <=25)
--- NOTE | 2018-07-29 15:40 | NUR ---
Patient will be admitted to care of DR VILLARREAL. Admited to [facility]. Will go to room 120A. Belongings list completed. Report to CARLA MADISON.
[2018-07-29 16:00] VITALS: BP 144/85
[2018-07-29 16:07] LABS: BILIRUBIN,URINE 1+ (NEGATIVE); BLOOD, URINE 1+ (NEGATIVE); LEUKOCYTE ESTERASE ,URINE NEGATIVE (NEGATIVE); NITRITE, URINE NEGATIVE (NEGATIVE); PH,URINE 5.5 (5.0-9.0); UGLUCOSE NEGATIVE (NEGATIVE)
[2018-07-29 16:14] LABS: APPEARANCE,URINE HAZY (CLEAR); COLOR,URINE ORANGE (YELLOW)
[2018-07-29 16:26] LABS: RBC,URINE 3-10 (FEW) /HPF (0-5); WBC,URINE 6-15 (FEW) /HPF (0-5)
--- NOTE | 2018-07-29 16:35 | NUR ---
ZOFRAN MEDICATION VIAL FELL AND BROKE BEFORE ADMINISTRATION. DISCARDED ZOFRAN MEDICATION.
[2018-07-29] MEDS: METOCLOPRAMIDE 10 MG/2 ML INJ VIAL IVP SCH ×2 (16:59→23:01)
[2018-07-29] MEDS: MORPHINE SULFATE 4 MG/ML SYR IVP PRN ×2 (17:44→21:55)
--- NOTE | 2018-07-29 19:30 | NUR ---
REPORT RECEIVED FROM AM NURSE AT BEDSIDE. PT IN STABLE CONDITION. AAOX4. INTRODUCED SELF TO PT. BOARD UPDATED. PT HAS COMPLAINTS OF EPIGASTRIC PAIN. ALREADY MEDICATED BUT ASKED FOR MORE PAIN MEDS. WILL CALL MD FOR NEW ORDERS. IV SITE R CALF 20G RUNNING NS@125ML/HR PATENT AND INTACT. SKIN WARM, DRY, AND INTACT WITH NO OPEN WOUNDS. BED LOCKED IN LOW POSITION. CALL FAUST WITHIN REACH. SAFETY PRECAUTIONS IN PLACE.
--- NOTE | 2018-07-29 19:45 | NUR ---
PT HAS BREAKTHROUGH PAIN. ME NOTIFIED. DR. BARRIOS IS PATIENT OBSERVER.
[2018-07-29] MEDS: ONDANSETRON 4 MG/2 ML VIAL IVP PRN (19:52)
--- NOTE | 2018-07-29 19:52 | NUR ---
ZOFRAN GIVEN FOR NAUSEA AND VOMITING. PT TOLERATED WELL.
--- NOTE | 2018-07-29 19:55 | NUR ---
RETURNED CALL. EXPLAINED ABOUT PT'S BREAKTHROUGH PAIN. MD ORDERED MORPHINE 2MG IVP Q4H PRN FOR BREAKTHROUGH PAIN. MD ALSO ORDERED 1MG ATIVAN IVP Q6H PRN.
[2018-07-29] MEDS: MORPHINE SULFATE 2 MG/ML SYR IVP PRN (20:21)
--- NOTE | 2018-07-29 20:21 | NUR ---
MORPHINE 2MG GIVEN FOR BREAKTHROUGH PAIN. PT TOLERATED WELL.
--- NOTE | 2018-07-29 21:55 | NUR ---
MORPHINE 4MG IVP GIVEN FOR 10/10 EPIGASTRIC PAIN. PT TOLERATED WELL.
--- NOTE | 2018-07-29 23:01 | NUR ---
ATIVAN GIVEN IVP. REGLAN GIVEN IVP. PT TOLERATED WELL.
[2018-07-29] MEDS: LORazepam 2 MG/ML VIAL IVP PRN (23:02)
[2018-07-30] VITALS: BP 147/72
[2018-07-30] MEDS: NACL 0.9% 1,000 ML IV SCH ×4 (02:00→21:01)
[2018-07-30] MEDS: ONDANSETRON 4 MG/2 ML VIAL IVP PRN ×3 (02:11→15:49)
[2018-07-30] MEDS: MORPHINE SULFATE 4 MG/ML SYR IVP PRN ×4 (02:11→18:29)
--- NOTE | 2018-07-30 02:11 | NUR ---
ZOFRAN GIVEN IVP. MORPHINE GIVEN FOR 10/10 PAIN. PT TOLERATED WELL.
--- NOTE | 2018-07-30 04:00 | NUR ---
PT SLEEPING COMFORTABLY IN BED. NO S/S OF DISTRESS NOTED. RESPIRATIONS EVEN, UNLABORED, AND WNL. WILL CONTINUE TO MONITOR.
[2018-07-30] MEDS: METOCLOPRAMIDE 10 MG/2 ML INJ VIAL IVP SCH ×4 (05:27→23:07)
--- NOTE | 2018-07-30 05:27 | NUR ---
REGLAN GIVEN IVP. PT TOLERATED WELL.
[2018-07-30] MEDS: MORPHINE SULFATE 2 MG/ML SYR IVP PRN ×4 (05:44→21:01)
--- NOTE | 2018-07-30 05:44 | NUR ---
MORPHINE 2MG IVP GIVEN FOR 10/10 EPIGASTRIC PAIN. PT TOLERATED WELL.
[2018-07-30 06:31] LABS: BASOPHILS % (AUTO) 0.2 % (0.0-2.0); EOSINOPHILS % (AUTO) 0.1 % (0.0-4.0); HEMATOCRIT 40.8 % (36-52); HEMOGLOBIN 13.7 g/dL (12.0-18.0); LYMPHOCYTES % (AUTO) 9.8 % (20.5-51.1); MEAN CORPUSCULAR HEMOGLOBIN 30 pg (27-31); MEAN CORPUSCULAR HGB CONC 34 g/dL (33-37); MONOCYTES # (AUTO) 2.5 K/uL (0.8-1.0); MONOCYTES % (AUTO) 12.1 % (1.7-9.3); NEUTROPHILS % (AUTO) 77.8 % (42.2-75.2); PLATELET COUNT (AUTO) 325 K/uL (140-450); RED BLOOD CELL COUNT(AUTO) 4.63 MIL/uL (4.20-6.10); RED CELL DISTRIBUTION WIDTH 13.3 % (11.6-13.7); WHITE BLOOD COUNT (AUTO) 20.6 K/uL (4.8-10.8)
[2018-07-30 07:24] LABS: ALBUMIN 4.2 g/dL (3.4-5.0); ANION GAP 6.6 (8-16); CARBON DIOXIDE 28.3 mmol/L (21-32); CREATININE 1.6 mg/dL (0.7-1.3); MAGNESIUM 2.1 mg/dL (1.8-2.4); TOTAL BILIRUBIN 1.1 mg/dL (0.0-1.0)
--- NOTE | 2018-07-30 07:30 | NUR ---
REPORT GIVEN TO AM NURSE AT BEDSIDE. PT IN STABLE CONDITION.
--- NOTE | 2018-07-30 07:31 | NUR ---
Report received from pm nurse De. Pt amb in hallway, right ankle iv intact & asymptomatic with ongoing NS @ 125ml/hr. No signs of distress. Will cont to monitor.
[2018-07-30 08:00] VITALS: BP 102/53
[2018-07-30] MEDS: PANTOPRAZOLE 40 MG INJ VIAL IVP SCH (08:14)
--- NOTE | 2018-07-30 08:14 | NUR ---
Zofran given for c/o nausea. No episode of vomiting. Ice chips offered for comfort. Pt sitting on bed, call light within reach.
--- NOTE | 2018-07-30 08:36 | NUR ---
PATIENT HAS BEEN SCREENED AND CATEGORIZED HIGH NUTRITION RISK. PATIENT WILL BE SEEN WITHIN 1-2 DAYS OF ADMISSION. 07/30/18-07/31/[address]
[2018-07-30 08:55] LABS: POTASSIUM 2.9 mmol/L (3.5-5.1)
--- NOTE | 2018-07-30 09:00 | NUR ---
Dr. Hendrix paged re: critical lab value. Awaiting call back. Pt currently pacing in [facility]. No signs of distress.
--- NOTE | 2018-07-30 09:14 | NUR ---
Pt amb in hallway. No c/o nausea at this time. Respirations even & nonlabored.
--- NOTE | 2018-07-30 09:15 | NUR ---
Dr. Hendrix paged again re: critical lab value. Awaiting call back.
--- NOTE | 2018-07-30 09:45 | NUR ---
Dr. Hendrix paged again. Awaiting call back.
--- NOTE | 2018-07-30 09:52 | NUR ---
Received call back from Dr Hendrix. Critical lab value for potassium reported. Received order.
[2018-07-30] MEDS ORDERED: POTASSIUM CHLORIDE 10 MEQ TABER PO SCH ×2 (10:00→15:00)
[2018-07-30] MEDS: KCL 20 MEQ/WATER INJ PREMIX 200 ML IV SCH ×2 (13:47→15:55)
--- NOTE | 2018-07-30 13:50 | NUR ---
Initiated K-rider infusion @ 10mEq/hr (50ml/hr) to right ankle IV. IV site intact & asymptomatic.
--- NOTE | 2018-07-30 14:10 | NUR ---
07/30/18 RD INITIAL ASSESSMENT COMPLETED PLEASE REFER TO NUTRITION ASSESSMENT UNDER CARE ACTIVITY FOR ESTIMATED NUTRITIONAL NEEDS. 1. CONTINUE CLEAR LIQUID DIET UNTIL MEDICALLY APPROPRIATE TO BEGIN NUTRITION 2. WHEN/IF PATIENT MEDICALLY STABLE TO BEGIN NUTRITION, RECOMMEND RENAL DIET 3. DIETITIAN PROVIDED RENAL DIET NUTRITION THERAPY 4. RD TO FOLLOW-UP 3-5 DAYS, MODERATE RISK RYAN EDOUARD RD
--- NOTE | 2018-07-30 15:49 | NUR ---
Zofran given for c/o nausea. No vomiting. Offered ice chips for comfort. Call light within reach.
[2018-07-30 16:00] VITALS: BP 100/55
--- NOTE | 2018-07-30 16:49 | NUR ---
No c/o nausea at this time. Pt resting in bed, respirations even & nonlabored. Call light within reach.
--- NOTE | 2018-07-30 19:20 | NUR ---
Report given to pm nurse Siri.
--- NOTE | 2018-07-30 19:21 | NUR ---
RECEIVED REPORT FROM DAY SHIFT NURSE ANTHONY-RN AT BEDSIDE. PT RESTING IN BED, AOX4, ON ROOM AIR WITH IV SITE ON RIGHT ANKLE #20G RUNNING NS @ 125ML/HR. DISCUSSED PLAN OF CARE AND PT VERBALIZED UNDERSTANDING. NO S/S OF RESPIRATORY DISTRESS OR DISCOMFORT AT THIS TIME. BED IN LOWEST POSITION, BED BREAKS ON, BOTH SIDE RAILS UP. BEDSIDE TABLE AND CALL LIGHT ARE WITHIN REACH. WILL CONTINUE TO MONITOR.
[2018-07-30 20:00] VITALS: BP 92/39
--- NOTE | 2018-07-30 20:00 | NUR ---
VITAL SIGNS TAKEN AND TOLERATED WELL. PT C/O 11/14 PAIN HOWEVER IS WITHIN HIS TOLERABLE LEVEL. NO S/S OF RESPIRATORY DISTRESS OR DISCOMFORT NOTED AT THIS TIME. WILL CONTINUE TO MONITOR.
--- NOTE | 2018-07-30 21:01 | NUR ---
PT C/O PAIN AND MEDICATED WITH MORPHINE 2MG AND CHANGED IVF BAG. PT TOLERATED WELL. NO S/S OF RESPIRATORY DISTRESS OR DISCOMFORT NOTED AT THIS TIME. WILL CONTINUE TO MONITOR.
--- NOTE | 2018-07-30 23:07 | NUR ---
SCHEDULED MEDICATION REGLAN GIVEN AND TOLERATED WELL. NO S/S OF RESPIRATORY DISTRESS OR DISCOMFORT NOTED AT THIS TIME. WILL CONTINUE TO MONITOR.
[2018-07-31] VITALS: BP 112/70
--- NOTE | 2018-07-31 | NUR ---
VITAL SIGNS TAKEN AND TOLERATED WELL. PT C/O PAIN 02/14- WILL MEDICATE. NO S/S OF RESPIRATORY DISTRESS OR DISCOMFORT NOTED AT THIS TIME. WILL CONTINUE TO MONITOR.
[2018-07-31] MEDS: MORPHINE SULFATE 4 MG/ML SYR IVP PRN ×3 (00:05→20:27)
--- NOTE | 2018-07-31 00:05 | NUR ---
MEDICATED WITH MORPHINE 4MG FOR 8 PAIN. PT TOLERATED WELL. NO S/S OF RESPIRATORY DISTRESS OR DISCOMFORT NOTED AT THIS TIME. WILL CONTINUE TO MONITOR.
--- NOTE | 2018-07-31 02:00 | NUR ---
PT CONTINUES TO SLEEP IN BED. NO S/S OF RESPIRATORY DISTRESS OR DISCOMFORT NOTED AT THIS TIME. WILL CONTINUE TO MONITOR.
[2018-07-31] MEDS: MORPHINE SULFATE 2 MG/ML SYR IVP PRN ×5 (02:49→23:09)
[2018-07-31] MEDS: ONDANSETRON 4 MG/2 ML VIAL IVP PRN ×3 (02:49→20:27)
--- NOTE | 2018-07-31 02:49 | NUR ---
PT C/O PAIN AND NAUSEA. MEDICATED WITH MORPHINE 2MG AND ZOFRAN. PT TOLERATED WELL. NO S/S OF RESPIRATORY DISTRESS OR DISCOMFORT NOTED AT THIS TIME. WILL CONTINUE TO MONITOR.
--- NOTE | 2018-07-31 04:00 | NUR ---
PT CONTINUES SLEEPING IN BED. NO S/S OF RESPIRATORY DISTRESS OR DISCOMFORT NOTED AT THIS TIME. WILL CONTINUE TO MONITOR.
[2018-07-31] MEDS: NACL 0.9% 1,000 ML IV SCH ×3 (05:00→22:29)
[2018-07-31] MEDS: METOCLOPRAMIDE 10 MG/2 ML INJ VIAL IVP SCH ×4 (05:58→23:09)
--- NOTE | 2018-07-31 06:00 | NUR ---
SCHEDULED MEDICATION GIVEN AND PAIN MEDICATION GIVEN. NO S/S OF RESPIRATORY DISTRESS OR DISCOMFORT NOTED AT THIS TIME. WILL CONTINUE TO MONITOR.
[2018-07-31 06:20] LABS: BASOPHILS # (AUTO) 0.1 K/uL (0.00-0.22); BASOPHILS % (AUTO) 1.5 % (0.0-2.0); EOSINOPHILS % (AUTO) 0.5 % (0.0-4.0); HEMATOCRIT 39.9 % (36-52); HEMOGLOBIN 13.2 g/dL (12.0-18.0); LYMPHOCYTES # (AUTO) 2.5 K/uL (2.0-11.5); LYMPHOCYTES % (AUTO) 27.4 % (20.5-51.1); MEAN CORPUSCULAR HEMOGLOBIN 30 pg (27-31); MEAN CORPUSCULAR HGB CONC 33 g/dL (33-37); MEAN CORPUSCULAR VOLUME 89.8 fL (80-94); MONOCYTES # (AUTO) 1.3 K/uL (0.8-1.0); MONOCYTES % (AUTO) 14.4 % (1.7-9.3); NEUTROPHILS # (AUTO) 5.2 K/uL (1.8-7.7); NEUTROPHILS % (AUTO) 56.2 % (42.2-75.2); PLATELET COUNT (AUTO) 325 K/uL (140-450); RED BLOOD CELL COUNT(AUTO) 4.45 MIL/uL (4.20-6.10); RED CELL DISTRIBUTION WIDTH 13.4 % (11.6-13.7); WHITE BLOOD COUNT (AUTO) 9.3 K/uL (4.8-10.8)
--- NOTE | 2018-07-31 07:38 | NUR ---
ENDORSED PT CARE TO DAY SHIFT NURSE SIMON AGUIRRE FOR CONTINUITY OF CARE.
[2018-07-31 07:41] LABS: ALBUMIN 3.8 g/dL (3.4-5.0); ANION GAP 10.8 (8-16); CARBON DIOXIDE 28.6 mmol/L (21-32); CREATININE 1.1 mg/dL (0.7-1.3); POTASSIUM 4.4 mmol/L (3.5-5.1); TOTAL BILIRUBIN 0.9 mg/dL (0.0-1.0)
--- NOTE | 2018-07-31 07:50 | NUR ---
PATIENT LEFT THE UNIT FOR GASTRIC EMPTYING STUDY
[2018-07-31 07:56] VITALS: BP 135/67
[2018-07-31] MEDS: PANTOPRAZOLE 40 MG INJ VIAL IVP SCH (10:03)
[2018-07-31] MEDS: LORazepam 2 MG/ML VIAL IVP PRN (10:19)
--- NOTE | 2018-07-31 13:47 | NUR ---
PAGED DR VILLARREAL TO RELAY GASTRIC EMPTYING STUDY RESULTS
--- NOTE | 2018-07-31 14:00 | NUR ---
SPOKE TO DR VILLARREAL AND INFORMED HIM ABOUT THE GASTRIC EMPTYING STUDY RESULTS. DR YU PUT IN ORDERS
[2018-07-31 16:42] VITALS: BP 118/74
[2018-07-31] MEDS: ERYTHROMYCIN 250 MG TABEC PO SCH (17:00)
[2018-07-31] MEDS ORDERED: CHLORHEXADINE GLUC 2% CLOTH TP SCH (18:00)
[2018-07-31] MEDS ORDERED: MUPIROCIN CA NASAL 2% 1GM TUBE NS SCH (18:00)
--- NOTE | 2018-07-31 19:30 | NUR ---
PATIENT REPORT GIVEN AT BEDSIDE. PATIENT ENDORSED IN STABLE CONDITION
--- NOTE | 2018-07-31 19:31 | NUR ---
RECEIVED REPORT FROM DAY SHIFT NURSE ANTHONY-CARLA AT BEDSIDE. PT RESTING IN BED, AOX4, ON ROOM AIR WITH IV SITE ON RIGHT ANKLE #20G RUNNING NS @ 125ML/HR. DISCUSSED PLAN OF CARE AND PT VERBALIZED UNDERSTANDING. NO S/S OF RESPIRATORY DISTRESS OR DISCOMFORT AT THIS TIME. BED IN LOWEST POSITION, BED BREAKS ON, BOTH SIDE RAILS UP. BEDSIDE TABLE AND CALL LIGHT ARE WITHIN REACH. WILL CONTINUE TO MONITOR.
[2018-07-31 20:00] VITALS: BP 107/51
--- NOTE | 2018-07-31 20:00 | NUR ---
VITAL SIGNS TAKEN AND TOLERATED WELL. PT C/O PAIN 02/14- WILL MEDICATE. NO S/S OF RESPIRATORY DISTRESS OR DISCOMFORT NOTED AT THIS TIME WILL CONTINUE TO MONITOR.
--- NOTE | 2018-07-31 20:27 | NUR ---
PAIN MEDICATION GIVEN AND TOLERATED WELL. NO S/S OF RESPIRATORY DISTRESS OR DISCOMFORT AT THIS TIME. WILL CONTINUE TO MONITOR.
[2018-07-31] MEDS ORDERED: ERYTHROMYCIN ETHYLSUCCINATE SUSP 200 MG/5 ML UDC PO SCH (21:00)
--- NOTE | 2018-07-31 22:00 | NUR ---
PT CONTINUES SLEEPING IN BED. NO S/S OF RESPIRATORY DISTRESS OR DISCOMFORT AT THIS TIME. WILL CONTINUE TO MONITOR.
--- NOTE | 2018-07-31 23:09 | NUR ---
PT C/O PAIN 02/14 AND MEDICATED WITH MORPHINE 2MG. SCHEDULED MEDICATION REGLAN ALSO GIVEN AND TOLERATED WELL. NO S/S OF RESPIRATORY DISTRESS OR DISCOMFORT AT THIS TIME. WILL CONTINUE TO MONITOR.
[2018-08-01] VITALS: BP 89/52
--- NOTE | 2018-08-01 | NUR ---
VITAL SIGNS TAKEN AND TOLERATED WELL. PT STATED PAIN LEVEL TO BE 5/10 AND WITHIN TOLERABLE LEVEL. NO S/S OF RESPIRATORY DISTRESS OR DISCOMFORT NOTED AT THIS TIME. WILL CONTINUE TO MONITOR.
[2018-08-01] MEDS: NACL 0.9% 1,000 ML IV SCH (00:15)
[2018-08-01] MEDS: ONDANSETRON 4 MG/2 ML VIAL IVP PRN (02:03)
[2018-08-01] MEDS: MORPHINE SULFATE 4 MG/ML SYR IVP PRN (02:04)
--- NOTE | 2018-08-01 02:04 | NUR ---
PT C/O PAIN AND NAUSEA. MEDICATED WITH MORPHINE 4MG AND ZOFRAN PRN. PT TOLERATED WELL. NO S/S OF RESPIRATORY DISTRESS OR DISCOMFORT NOTED AT THIS TIME. WILL CONTINUE TO MONITOR.
--- NOTE | 2018-08-01 04:00 | NUR ---
PT CONTINUES TO SLEEP IN BED. NO S/S OF RESPIRATORY DISTRESS OR DISCOMFORT NOTED AT THIS TIME. WILL CONTINUE TO MONITOR.
[2018-08-01] MEDS: METOCLOPRAMIDE 10 MG/2 ML INJ VIAL IVP SCH ×2 (05:56→12:00)
[2018-08-01] MEDS: MORPHINE SULFATE 2 MG/ML SYR IVP PRN ×2 (05:57→09:14)
--- NOTE | 2018-08-01 05:57 | NUR ---
SCHEDULED MEDICATION REGLAN GIVEN AND MORPHINE 2MG FOR PAIN 02/14. PT TOLERATED WELL. NO S/S OF RESPIRATORY DISTRESS OR DISCOMFORT NOTED AT THIS TIME. WILL CONTINUE TO MONITOR.
--- NOTE | 2018-08-01 07:09 | NUR ---
ENDORSED PT CARE TO DAY SHIFT NURSE MARIE FOR CONTINUITY OF CARE.
--- NOTE | 2018-08-01 07:10 | NUR ---
RECEIVED BEDSIDE REPORT FROM CLAIMS MANAGER NURSE. PATIENT AAOX4. PATIENT ON ROOM AIR, NO DISTRESS NOTED. SKIN INTACT. PATIENT AMBULATORY AND CONTINENT. IV ON R LEG 20 G INFUSING NS AT 125. IV CLEAN DRY AND INTACT. 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 BED IN LOW POSITION, CALL LIGHT WITHIN REACH. WILL CONTINUE TO MONITOR.
[2018-08-01 08:00] VITALS: BP 116/73
[2018-08-01 08:58] LABS: CARBON DIOXIDE 27.3 mmol/L (21-32)
[2018-08-01] MEDS: ERYTHROMYCIN 250 MG TABEC PO SCH ×2 (09:13→13:00)
[2018-08-01] MEDS: PANTOPRAZOLE 40 MG INJ VIAL IVP SCH (09:13)
--- NOTE | 2018-08-01 09:15 | NUR ---
ADMINISTERED SCHEDULED MEDS. PATIENT TOLERATED WELL. WILL CONTINUE TO MONITOR.
[2018-08-01 09:30] LABS: ANION GAP 9.7 (8-16)
[2018-08-01] MEDS ORDERED: ERY250 PO (09:47)
[2018-08-01] MEDS ORDERED: METO-486 PO (09:47)
--- NOTE | 2018-08-01 13:15 | NUR ---
EDUCATED PATIENT ON DISCHARGE INSTRUCTIONS. PROVIDED PATIENT WITH PRESCRIPTION AND EDUCATED PATIENT ON SIDE EFFECTS OF MEDICATIONS. PATIENT INSTRUCTED TO FOLLOW UP WITH PCP AND TO RETURN TO NEAREST ER WHEN SYMPTOMS WORSEN OR NEW SYMPTOMS ARISE. ANSWERED ALL PATIENTS QUESTIONS AND CONCERNS. REMOVED IV. TIP INTACT. REMOVED WRIST BAND. PATIENT VERBALIZED UNDERSTANDING.
== END 2018-08-01 13:20 | disposition home or self-care (01) | DRG 254 ==
LOC: MED 09:37 → MTU 14:32
PROVIDERS: ADMIT Internal Medicine; ATTEND Internal Medicine
DX: K31.84 Gastroparesis (principal); N17.0 Acute kidney failure with tubular necrosis; Q89.01 Asplenia (congenital); R65.10 Systemic inflammatory response syndrome (SIRS) of non-infectious origin without acute organ dysfunction; E87.1 Hypo-osmolality and hyponatremia; E86.0 Dehydration; E87.6 Hypokalemia; K58.9 Irritable bowel syndrome, unspecified; Z79.899 Other long term (current) drug therapy; K21.9 Gastro-esophageal reflux disease without esophagitis; K31.89 Other diseases of stomach and duodenum; F12.90 Cannabis use, unspecified, uncomplicated; R11.2 Nausea with vomiting, unspecified; Z90.81 Acquired absence of spleen; D72.829 Elevated white blood cell count, unspecified
CPT/HCPCS: 36415; 78264; 80048; 80053; 80305; 81001; 83690; 83735; 85025; 87081; 87086; 96361; 96374; 96375; 96376; 99285; C9113; J1630; J2060; J2270; J2405; J2765; J3480; J7030

== ENCOUNTER 2018-10-20 09:00 | Inpatient (IN) | payer OTHER ==
[~2018-10-20] VITALS: Ht 177.8 cm; Wt 83.5 kg
[~2018-10-20 09:00] MED LIST changes: +ERY250 PO; +METO-486 PO; -TRAM50TA1 PO
[2018-10-20 09:04] VITALS: BP 130/94
--- NOTE | 2018-10-20 09:09 | NUR ---
PT AMBULATED TO ER BED 12
--- NOTE | 2018-10-20 09:13 | NUR ---
33 Y MALE BIB GIRLFRIEND C/O HYPEREMESIS, ABDOMINAL PAIN, GENERALIZED WEAKNESS X 2 DAYS. PAIN ACHING AND SEVERE 10/10. HYPOACTIVE BOWEL SOUNDS. PT GAURDING ABDOMEN. LAST BM 1 WK AGO, PT STATES HE IS CONSTIPATED AND CAN NOT EAT. +N/V. PT STATES HE WAS DIAGNOSED WITH 2 MONTHS AGO WITH GASTROPARESIS. VSS AT THIS TIME. AA0X4. BED IS DOWN, LOCKED, BVED RAIL X 1, ERMD NOTIFIED. HX--GASTROPARESIS, GERD RX--REGLAN, PHENERGAN, OXYCODONE
[2018-10-20] MEDS ORDERED: ONDANSETRON 4 MG/2 ML VIAL IVP ONE (09:45)
[2018-10-20] MEDS ORDERED: MORPHINE SULFATE 2 MG/ML SYR IVP ONE ×2 (09:45→12:45)
[2018-10-20] MEDS ORDERED: METOCLOPRAMIDE 10 MG/2 ML INJ VIAL IVP ONE ×2 (09:45→12:55)
[2018-10-20 10:58] LABS: BASOPHILS % (AUTO) 0.2 % (0.0-2.0); HEMATOCRIT 47.2 % (36-52); HEMOGLOBIN 15.9 g/dL (12.0-18.0); LYMPHOCYTES # (AUTO) 1.9 K/uL (2.0-11.5); LYMPHOCYTES % (AUTO) 9.5 % (20.5-51.1); MEAN CORPUSCULAR HEMOGLOBIN 29 pg (27-31); MEAN CORPUSCULAR HGB CONC 34 g/dL (33-37); MEAN CORPUSCULAR VOLUME 86.8 fL (80-94); MONOCYTES # (AUTO) 1.9 K/uL (0.8-1.0); MONOCYTES % (AUTO) 9.8 % (1.7-9.3); NEUTROPHILS # (AUTO) 15.9 K/uL (1.8-7.7); NEUTROPHILS % (AUTO) 80.5 % (42.2-75.2); PLATELET COUNT (AUTO) 403 K/uL (140-450); RED BLOOD CELL COUNT(AUTO) 5.44 MIL/uL (4.20-6.10); RED CELL DISTRIBUTION WIDTH 12.9 % (11.6-13.7); WHITE BLOOD COUNT (AUTO) 19.7 K/uL (4.8-10.8)
--- NOTE | 2018-10-20 11:00 | NUR ---
VSS AT THIS TIME. AA0X4. PT SITTING IN BED.
[2018-10-20 11:08] LABS: ANION GAP 16.4 (8-16); CARBON DIOXIDE 28.7 mmol/L (21-32); CREATININE 2.4 mg/dL (0.7-1.3); POTASSIUM 3.1 mmol/L (3.5-5.1)
[2018-10-20 11:14] LABS: ALBUMIN 4.7 g/dL (3.4-5.0); TOTAL BILIRUBIN 1.2 mg/dL (0.0-1.0)
[2018-10-20] MEDS ORDERED: POTASSIUM CHLORIDE 10 MEQ TABER PO ONE (11:55)
--- NOTE | 2018-10-20 12:30 | NUR ---
VSS AT THIS TIME. AA0X4. PT SITTING IN BED.
[2018-10-20] MEDS ORDERED: NACL 0.9% 2,000 ML IV ONE (12:45)
[2018-10-20] MEDS ORDERED: LORazepam 2 MG/ML VIAL IVP ONE (12:45)
--- NOTE | 2018-10-20 13:00 | NUR ---
PT VERY ANXIOUS. CONTINUES TO LEAVE BED. PT ASKED TO STAY IN BED.
[2018-10-20] MEDS ORDERED: MORPHINE SULFATE 4 MG/ML SYR IVP PRN (13:15)
[2018-10-20] MEDS ORDERED: ACETAMINOPHEN 325 MG TAB PO PRN (13:15)
--- NOTE | 2018-10-20 13:55 | NUR ---
RECEIVED REPORT FROM ER NURSE AT BEDSIDE. PT APPEARS RESTLESS, STATES PAIN 10/10. PT KEEPS MOVING HIS BODY , CANNOT STAY IN ONE PLACE FOR A LONG TIME. AOX4. SKIN IS INTACT. MEDICATED WIT MORPHINE 4 MG FOR HIS PAIN. STATES MORPHINE IT DOES NOT HELP WITH HIS PAIN. ASKING FOR DILAUDID. PT ABLE TO WALK, CAN AMBULATE TO THE RESTROOM. PT HAD 1 EPISODE OF VOMITING AT THIS TIME. LR INFUSING AT 80 ML/HR. WILL CONTINUE TO MONITOR PT.
--- NOTE | 2018-10-20 13:55 | NUR ---
Patient will be admitted to care of [facility]. Admited to TELE. Will go to room 125A. Belongings list completed. Report to LAUREN AGUIRRE.
[2018-10-20] MEDS: LACTATED RINGERS 1,000 ML IV SCH (14:00)
--- NOTE | 2018-10-20 14:00 | NUR ---
VS RECORDED ON PT BP 172/101, T 98.2, 97% ON RA, RR 20, PAIN 10/10. PT MEDICATED WITH PAIN MEDS FOR HIS PAIN, WILL REASSESS HIS PAIN IN HOUR. WILL CONTINUE TO MONITOR PT.
--- NOTE | 2018-10-20 14:42 | NUR ---
PAGED DR. NAPOLES . PT COMPLAIN OF HIS PAIN GETTING MORE AND MORE . CHECKED BP N154/95. INFORMED PT THAT GIVE SOMETIME MORE SO THAT HIS PAIN MEDS ORNAMENTER HAND BE MANAGED. PT STATES HE IS HAVING MORE AND MORE PAIN. CANNOT TOLERATED. STATES WORKS BETTER WITH DILAUDID. WAITING FOR MD TO CALL BACK.
[2018-10-20] MEDS: MORPHINE SULFATE 4 MG/ML SYR IVP PRN ×3 (15:32→23:35)
--- NOTE | 2018-10-20 15:36 | NUR ---
ADMINISTERED 8 MG IV PUSH OF THE MORPHINE TO PT FOR ABD PAIN 03/17. PT VS RECORDED BP 155/91, RR 20 AND HR 71. INFORMED PT THAT HE IS GETTING HIGHER DOSE OF THE MORPHINE , IT CAN LOWER HIS RESPIRATION AND CAN DROP THE BLOOD PRESSURE SIGNIFICANTLY. MIGHT CAUSE INJURY IF TRIED TO WALK. PT VERBALIZED UNDERSTANDING OF THE TEACHING AND STATES WILL CALL FOR ANY HELP. WONT LEAVE THE BED. PLACED CALL LIGHT WITHIN PTS REACH. INFORMED TO USE CALL LIGHT FOR ANY HELP. OT STATES WILL USE CALL LIGHT FOR HELP. WILL REASSESS PTS PAIN LEVEL AND WILL CONTINUE TO MONITOR PT.
[2018-10-20 16:00] VITALS: BP 155/91
[2018-10-20] MEDS: METOCLOPRAMIDE 10 MG/2 ML INJ VIAL IVP SCH ×2 (17:44→23:04)
--- NOTE | 2018-10-20 17:50 | NUR ---
ADMINISTERED ANI-VOMITING MEDS TO PT ORDERED. NO SIGN OF DISTRESS NOTED. ASKING FOR THE ATIVAN, INFORMED THAT HE HAS NO ORDER FOR THE ATIVAN AT THIS TIME. PT APPEARS MORE CALM. WILL CONTINUE TO MONITOR PT.
--- NOTE | 2018-10-20 19:25 | NUR ---
ENDORSED PT TO PM NURSE AT BEDSIDE. PT IN STABLE CONDITION.
--- NOTE | 2018-10-20 19:26 | NUR ---
RECEIVED BEDSIDE REPORT FROM AM NURSE SITAL RN, PT STABLE, NO DISTRESS NOTED, IV TO L FA 20G PATENT INTACT, INFUSING LR @ 80ML/HR, INFUSING WELL, PT ON ROOM AIR, NO SOB, PT C/O PAIN, WILL MEDICATE WHEN MEDICATION IS DUE, PT STATED UNDERSTANDING, INITIAL ASSESSMENT DONE, ALL SAFETY PRECAUTION MET, CALL LIGHT WITHIN REACH, WILL CONTINUE TO MONITOR.
--- NOTE | 2018-10-20 19:36 | NUR ---
PT C/O PAIN 04/16, PAIN MEDICATION ADMINISTERED, PT TOLERATED WELL, NO DISTRESS NOTED, CALL LIGHT WITHIN REACH, WILL CONTINUE TO MONITOR.
[2018-10-20 20:00] VITALS: BP 149/95
[2018-10-20] MEDS: ERYTHROMYCIN 250 MG TABEC PO SCH (20:23)
--- NOTE | 2018-10-20 20:23 | NUR ---
DUE MEDICATION ADMINISTERED, PT TOLERATED WELL, NO DISTRESS NOTED, CALL LIGHT WITHIN REACH, WILL CONTINUE TO MONITOR.
--- NOTE | 2018-10-20 23:35 | NUR ---
PT C/O PAIN, V/S TAKEN, WITHIN PT BASELINE, PAIN MEDICATION PER MD ORDER ADMINISTERED, PT TOLERATED WELL, CALL LIGHT WITHIN REACH, WILL CONTINUE TO MONITOR.
[2018-10-21] VITALS: BP 155/84
[2018-10-21] MEDS: LACTATED RINGERS 1,000 ML IV SCH ×2 (03:00→14:50)
[2018-10-21 04:00] VITALS: BP 113/57
[2018-10-21] MEDS: ERYTHROMYCIN 250 MG TABEC PO SCH ×3 (04:37→21:06)
[2018-10-21] MEDS: METOCLOPRAMIDE 10 MG/2 ML INJ VIAL IVP SCH ×3 (04:41→18:48)
[2018-10-21] MEDS: MORPHINE SULFATE 2 MG/ML SYR IVP PRN ×4 (04:41→19:56)
--- NOTE | 2018-10-21 04:41 | NUR ---
PT C/O PAIN, STATED WANTS TO TAKE THE SMALLER DOSAGE OF MORPHINE INSTEAD OF THE 8MG ORDER, MEDICATION ADMINISTERED, PT TOLERATED WELL, NO DISTRESS NOTED, CALL LIGHT WITHIN REACH, WILL CONTINUE TO MONITOR.
[2018-10-21] MEDS: MORPHINE SULFATE 4 MG/ML SYR IVP PRN (05:13)
--- NOTE | 2018-10-21 05:13 | NUR ---
PT C/O PAIN, STATED THAT THE PAIN IS NOT TOLERABLE AND HE MADE A MISTAKE, HE WANTS TO TAKE THE 8MG DOSE INSTEAD, PULLED 6MG DOSE FROM PYXIS AND ADMINISTERED, PT TOLERATED WELL, NO DISTRESS NOTED, MORPHINE OF A TOTAL OF 8MG GIVEN PER DR ORDER. CALL LIGHT WITHIN REACH, WILL CONTINUE TO MONITOR.
[2018-10-21] MEDS ORDERED: MORPHINE SULFATE 2 MG/ML SYR ONE (05:21)
[2018-10-21] MEDS ORDERED: MORPHINE SULFATE 4 MG/ML SYR ONE (05:21)
[2018-10-21 06:46] LABS: BASOPHILS # (AUTO) 0.1 K/uL (0.00-0.22); BASOPHILS % (AUTO) 0.4 % (0.0-2.0); EOSINOPHILS % (AUTO) 0.2 % (0.0-4.0); HEMATOCRIT 40.4 % (36-52); HEMOGLOBIN 13.3 g/dL (12.0-18.0); LYMPHOCYTES # (AUTO) 2.9 K/uL (2.0-11.5); LYMPHOCYTES % (AUTO) 15.2 % (20.5-51.1); MEAN CORPUSCULAR HEMOGLOBIN 29 pg (27-31); MEAN CORPUSCULAR HGB CONC 33 g/dL (33-37); MEAN CORPUSCULAR VOLUME 88.1 fL (80-94); MONOCYTES # (AUTO) 2.5 K/uL (0.8-1.0); MONOCYTES % (AUTO) 13.1 % (1.7-9.3); NEUTROPHILS # (AUTO) 13.7 K/uL (1.8-7.7); NEUTROPHILS % (AUTO) 71.1 % (42.2-75.2); PLATELET COUNT (AUTO) 346 K/uL (140-450); RED BLOOD CELL COUNT(AUTO) 4.58 MIL/uL (4.20-6.10); RED CELL DISTRIBUTION WIDTH 12.8 % (11.6-13.7); WHITE BLOOD COUNT (AUTO) 19.2 K/uL (4.8-10.8)
[2018-10-21 07:32] LABS: ALBUMIN 3.9 g/dL (3.4-5.0); ANION GAP 14.4 (8-16); CARBON DIOXIDE 28.3 mmol/L (21-32); CREATININE 1.3 mg/dL (0.7-1.3); MAGNESIUM 2.1 mg/dL (1.8-2.4); TOTAL BILIRUBIN 1.2 mg/dL (0.0-1.0)
--- NOTE | 2018-10-21 07:36 | NUR ---
ENDORSED PT TO DAY SHIFT NURSE, NO DISTRESS NOTED, CALL LIGHT WITHIN REACH.
--- NOTE | 2018-10-21 07:37 | NUR ---
RECEIVED REPORT FROM PM NURSE AT THE BEDSIDE. PT WAS SLEEPING IN HIS BED. VS STABLE. IV ACCESS IN HIS LF HAND, INTACT. IVF INFUSING WELL. NO SIGN OF DISTRESS NOTED. DENIES ANY PAIN AT THIS TIME. UPDATED BOARD . WILL CONTINUE TO MONITOR PT.
[2018-10-21 07:50] LABS: POTASSIUM 2.7 mmol/L (3.5-5.1)
[2018-10-21 08:00] VITALS: BP 101/53
[2018-10-21] MEDS: POTASSIUM CHLORIDE 10 MEQ TABER PO SCH ×2 (09:44→14:45)
[2018-10-21] MEDS: ONDANSETRON 4 MG/2 ML VIAL IVP PRN (09:44)
--- NOTE | 2018-10-21 09:53 | NUR ---
ADMINISTERED MEDS TO PT ORDERED.M PT LOW POTASSIUM, ADMINISTERED K-DUR ORDERED. PT ASKING FOR PAIN, STATES HAS MILD PAIN 6/10 ON HIS RT LOWER ABD QUADRANT. PT STATES FEELING NAUSEATED.ADMINISTERED ZOFRAN TO PT. PT HAD BM X1 TODAY. PT SITTING ON HIS BED . CALL LIGHT WITHIN PT REACH. WILL CONTINUE TO MONITOR PT.
--- NOTE | 2018-10-21 09:56 | NUR ---
PATIENT HAS BEEN SCREENED AND CATEGORIZED HIGH NUTRITION RISK. PATIENT WILL BE SEEN WITHIN 1-2 DAYS OF ADMISSION. 10/21/18-10/22/[address]
--- NOTE | 2018-10-21 10:19 | NUR ---
CM NOTE SPOKE WITH YULIYA OF [facility]# [phone] TO SCHEDULE PATIENT'S OUTPATIENT FOLLOW UP WITH Berkley MENDEZ ON OCTOBER 29, 2018, 1:30 PM, AT THE CLINIC AT [address] [place] [address]. I GAVE THE PATIENT THE APPOINTMENT SLIP.
[2018-10-21 12:00] VITALS: BP 109/61
--- NOTE | 2018-10-21 13:06 | NUR ---
10/21/18 RD INITIAL ASSESSMENT COMPLETED PLEASE REFER TO NUTRITION ASSESSMENT UNDER CARE ACTIVITY FOR ESTIMATED NUTRITIONAL NEEDS. 1. CONTINUE CCHO 60 GM DIET ABLE AND TOLERATED. IF PT. CONTINUES WITH EPISODES OF EMESIS, CONSIDER DOWNGRADING DIET TO CCHO 60 GM, FULL LIQUID DIET. 2. ADD 8 OZ GLUCERNA BID FOR SUPPLEMENTATION AND POOR PO INTAKE, WHICH ADDS AN ADDITIONAL 440 CALORIES AND [address] TO FOLLOW-UP 2-3 DAYS, HIGH RISK KIA FRAIRE RD
--- NOTE | 2018-10-21 14:20 | NUR ---
ENDORSED PT TO CARLA MONTANEZ, UPDATED HER ON PTS SBAR. PT STABLE AT THIS TIME.
--- NOTE | 2018-10-21 14:21 | NUR ---
RECEIVED BEDSIDE REPORT FROM CARLA AGUILAR. PATIENT IS AWAKE, ALERT AND ORIENTEDX4. NO SIGNS OF DISTRESS ON RA. SKIN IS INTACT. IV ON L FA 20G INFUSING LR AT 80. CLEAN, DRY AND INTACT. PATIENT IS AMBULATORY. PATIENT IS CONTINENT. PATIENT ABLE TO MAKE NEEDS KNOWN. BED IN LOW POSITION. CALL LIGHT WITHIN REACH. WILL CONTINUE TO MONITOR
--- NOTE | 2018-10-21 14:50 | NUR ---
ADMINISTERED DA MED AND PRN PAIN MED. PATIENT TOLERATED WELL. EDUCATED ON SIDE EFFECTS. PATIENT VERBALIZED UNDERSTANDING. WILL CONTINUE TO MONITOR
[2018-10-21] MEDS ORDERED: MORPHINE SULFATE 2 MG/ML SYR IVP SCH (14:55)
[2018-10-21 16:00] VITALS: BP 125/60
--- NOTE | 2018-10-21 16:16 | NUR ---
PATIENT IS SLEEPING. NO SIGNS OF DISTRESS. WILL CONTINUE TO MONITOR THE PATIENT
--- NOTE | 2018-10-21 18:00 | NUR ---
PATIENT RESTING IN BED. NO SIGNS OF DISTRESS. WILL CONTINUE TO MONITOR
--- NOTE | 2018-10-21 19:20 | NUR ---
GAVE BEDSIDE REPORT TO FIXED WING AIRCRAFT FLIGHT ENGINEER NURSE. PATIENT ENDORSED IN STABLE CONDITION
--- NOTE | 2018-10-21 19:30 | NUR ---
ASSUMED CARE OF PATIENT, AWAKE, ALERT AND ORIENTED. ASKING FOR PAIN MEDICATION. PLAN OF CARE DISCUSSED WITH PATIENT, VERBALIZED UNDERSTANDING WELL. CARE BOARD UPDATED. CALL LIGHT WITHIN REACH.
--- NOTE | 2018-10-21 20:00 | NUR ---
VITAL SIGNS STABLE. AFEBRILE. CALL LIGHT WITHIN REACH.
--- NOTE | 2018-10-21 22:00 | NUR ---
ASLEEP. NO COMPLAINS. CALL LIGHT WITHIN REACH.
--- NOTE | 2018-10-21 23:38 | NUR ---
ENDORSED CARE AT BEDSIDE WITH NORMA RN. PATIENT IN STABLE CONDITION.
--- NOTE | 2018-10-21 23:39 | NUR ---
RECEIVED ENDORSEMENT FROM CARLA SALTER, FOR CONTINUOUS OF CARE, PT IN STABLE CONDITION, NO DISTRESS NOTED, SLEEPING, CALL LIGHT WITHIN REACH, WILL CONTINUE TO MONITOR.
[2018-10-22] VITALS: BP 136/76
[2018-10-22] MEDS: MORPHINE SULFATE 4 MG/ML SYR IVP PRN ×3 (00:25→09:20)
--- NOTE | 2018-10-22 00:25 | NUR ---
DUE MEDICATION ADMINISTERD, PT STATED HAVING 10/10 PAIN, PAIN MEDICATION ADMINISTERED, PT TOLERATED WELL, NO DISTRESS NOTED, CALL LIGHT WITHIN REACH, WILL CONTINUE TO MONITOR.
[2018-10-22] MEDS: METOCLOPRAMIDE 10 MG/2 ML INJ VIAL IVP SCH ×3 (00:26→12:08)
[2018-10-22] MEDS: ONDANSETRON 4 MG/2 ML VIAL IVP PRN ×4 (03:43→21:13)
--- NOTE | 2018-10-22 03:43 | NUR ---
PT C/O NAUSEA, MEDICATION PER MD ORDER ADMINISTERED, PT TOLERATED WELL, NO DISTRESS NOTED, PT AMBULATED AROUND NURSING STATION, NO DISTRESS NOTED, WENT BACK TO BED, CALL LIGHT WITHIN REACH, WILL CONTINUE TO MONITOR.
[2018-10-22] MEDS: LACTATED RINGERS 1,000 ML IV SCH ×2 (03:48→14:28)
[2018-10-22 04:00] VITALS: BP 114/70
[2018-10-22] MEDS: ERYTHROMYCIN 250 MG TABEC PO SCH ×2 (04:41→12:09)
--- NOTE | 2018-10-22 06:47 | NUR ---
YARD DRIVER UNSUCCESSFULLY MYNOR BLOOD FROM PT, PT REFUSED SECOND NEEDLE STICK. PT RESTING ON BED, NO DISTRESS NOTED, CALL LIGHT WITHIN REACH, WILL CONTINUE TO MONITOR.
--- NOTE | 2018-10-22 07:29 | NUR ---
ENDORSED PT TO DAY SHIFT NURSE EDWIGE RN, PT STABLE, NO DISTRESS NOTED, CALL LIGHT WITHIN REACH.
--- NOTE | 2018-10-22 07:30 | NUR ---
REPORT RECEIVED FROM SEQUINS WINDER NURSE, PT WALKING AROUND IN HALLWAY WITH STEADY GAIT, RESP EVEN UNLABORED, SKIN WARM DRY COLOR WNL, PT REPORTS ABDOMINAL PAIN 10/10, ABD SOFT, NON DISTENDED, +BS X4Q, PRN PAIN MED NOT DUE UNTIL 0849, WILL MEDICATE WHEN ITS DUE. PLAN OF CARE REVIEWED, NO OTHER NEEDS AT THIS TIME, SAFETY MEASURES IN PLACE, WILL CONTINUE TO MONITOR.
[2018-10-22 08:00] VITALS: BP 130/80
[2018-10-22 08:31] LABS: BASOPHILS # (AUTO) 0.1 K/uL (0.00-0.22); BASOPHILS % (AUTO) 0.6 % (0.0-2.0); EOSINOPHILS # (AUTO) 0.1 K/uL (0-0.4); EOSINOPHILS % (AUTO) 0.6 % (0.0-4.0); HEMATOCRIT 36.4 % (36-52); HEMOGLOBIN 12.2 g/dL (12.0-18.0); LYMPHOCYTES # (AUTO) 2.7 K/uL (2.0-11.5); LYMPHOCYTES % (AUTO) 19.4 % (20.5-51.1); MEAN CORPUSCULAR HEMOGLOBIN 30 pg (27-31); MEAN CORPUSCULAR HGB CONC 34 g/dL (33-37); MEAN CORPUSCULAR VOLUME 88.3 fL (80-94); MONOCYTES # (AUTO) 1.9 K/uL (0.8-1.0); MONOCYTES % (AUTO) 13.8 % (1.7-9.3); NEUTROPHILS # (AUTO) 9.1 K/uL (1.8-7.7); NEUTROPHILS % (AUTO) 65.6 % (42.2-75.2); PLATELET COUNT (AUTO) 348 K/uL (140-450); RED BLOOD CELL COUNT(AUTO) 4.12 MIL/uL (4.20-6.10); RED CELL DISTRIBUTION WIDTH 13.2 % (11.6-13.7); WHITE BLOOD COUNT (AUTO) 13.8 K/uL (4.8-10.8)
[2018-10-22 08:48] LABS: ALBUMIN 3.1 g/dL (3.4-5.0); ANION GAP 11.9 (8-16); CARBON DIOXIDE 26.5 mmol/L (21-32); CREATININE 0.9 mg/dL (0.7-1.3); POTASSIUM 3.4 mmol/L (3.5-5.1); TOTAL BILIRUBIN 0.8 mg/dL (0.0-1.0)
--- NOTE | 2018-10-22 09:45 | NUR ---
RECEIVED REPORT FROM DAY SHIFT NURSE EDWIGE, PATIENT IN STABLE CONDITION, LAST MEDICATED FOR PAIN AT 0920. PATIENT CURRETLY WALKING AROUND UNIT. ALL NEEDS MET AT THIS TIME. WILL CONTINUE TO MONITOR PATIENT.
--- NOTE | 2018-10-22 11:15 | NUR ---
PATIENT REQUESTED FOR CHICKEN BROTH, CHICKEN BROTH GIVEN. PATIENT TOLERATING IT. NO COMPLAINTS AT THIS TIME. PATIENT LAST MEDICATED FOR PAIN AT 0920, KNOWS NEXT SCHEDULE PAIN MEDICATION. WILL CONTINUE TO MONITOR PATIENT.
[2018-10-22 12:00] VITALS: BP 123/53
--- NOTE | 2018-10-22 12:14 | NUR ---
DR. NAPOLES AND DR. HUANG IN TO SEE THE PATIENT. WILL WAIT FOR THEIR NEW ORDERS. ORDERED MEDICATIONS GIVEN. PATIENT TOLERATED IT. PATIENT ASKED ABOUT NEXT SCHEDULE PAIN MEDICATION, INFORMED HIM OF THE TIME AND HE VERBALIZED UNDERSTANDING. SAFETY PRECAUTIONS IN PLACE, CALL LIGHT WITHIN REACH, WILL CONTINUE TO MONITOR PATIENT.
[2018-10-22] MEDS ORDERED: MORPHINE SULFATE 4 MG/ML SYR IVP PRN (12:35)
[2018-10-22] MEDS: SENNA 8.6 MG TAB PO SCH ×2 (13:04→17:00)
[2018-10-22] MEDS: traMADol 50 MG TAB PO SCH ×2 (13:05→17:00)
[2018-10-22] MEDS: ONDANSETRON 4 MG/2 ML VIAL IVP SCH ×2 (13:05→16:56)
--- NOTE | 2018-10-22 13:05 | NUR ---
PT C/O 10/10 ABD PAIN, PT MEDICATED. PATIENT TOLERATING IT WELL. WILL CONTINUE TO MONITOR PATIENT.
--- NOTE | 2018-10-22 13:07 | NUR ---
ORDERED MEDICATIONS GIVEN PER DR. HUANG'S ORDERS. PATIENT TOLERATED IT. PATIENT KNOWS NEXT SCHEDULE PAIN MEDICATION. WILL CONTINUE TO MONITOR PATIENT.
[2018-10-22] MEDS ORDERED: MAGNESIUM CITRATE 300 ML BTL PO SCH (13:30)
--- NOTE | 2018-10-22 14:23 | NUR ---
PATIENT VOMITED. REQUESTED FOR ZOFRAN PRN. PRN ZOFRAN GIVEN. PATIENT TOLERATED IT. WILL CONTINUE TO MONITOR PATIENT.
[2018-10-22 16:00] VITALS: BP 120/61
--- NOTE | 2018-10-22 17:00 | NUR ---
1700 ORAL MEDICATIONS WITHHELD PENDING US OF ABDOMEN. PATIENT AWARE. PATIENT CURRENTLY NPO.
[2018-10-22] MEDS: MORPHINE SULFATE 2 MG/ML SYR IVP PRN ×4 (17:02→23:46)
--- NOTE | 2018-10-22 17:02 | NUR ---
PT C/O 10/10 ABD PAIN, PT MEDICATED. PATIENT TOLERATING IT WELL. WILL CONTINUE TO MONITOR PATIENT.
--- NOTE | 2018-10-22 18:56 | NUR ---
PT C/O 6/10 ABD PAIN, PT MEDICATED. PATIENT TOLERATING IT WELL. WILL CONTINUE TO MONITOR PATIENT.
--- NOTE | 2018-10-22 19:32 | NUR ---
REPORT GIVEN TO MILK HANDLER NURSE AT BEDSIDE FOR CONTINUITY OF CARE. PATIENT IN STABLE CONDITION. MEDICATED FOR PAIN AT 1856, ENDORSED PAIN REASSESSMENT TO MILK HANDLER RN.
--- NOTE | 2018-10-22 19:33 | NUR ---
RECEIVED BEDSIDE REPORT FROM DAY SHIFT RN. PT ON ROOM AIR RESPIRATIONS ARE EQUAL AND UNLABORED. IV ON L FA 20G IVF LR 80ML/H. SKIN INTACT. PT IS AMBULATORY. ON A CLEAR LIQUID DIET. PT STATES HAD ONE CLEAR LIQUID BM. PLAN OF CARE DISCUSSED WITH PT. WHITE BOARD UPDATED. CALL LIGHT WITHIN REACH. WILL CONTINUE TO MONITOR.
[2018-10-22 20:00] VITALS: BP 118/58
[2018-10-22] MEDS ORDERED: AMITRIPTYLINE 25 MG TAB PO SCH (21:00)
--- NOTE | 2018-10-22 21:17 | NUR ---
VITAL SIGNS ARE WITHIN NORMAL LIMITS. MEDICATIONS GIVEN PT TOLERATED WELL. ALL NEEDS MET AT THIS TIME. CALL LIGHT WITHIN REACH. WILL CONTINUE TO MONITOR.
[2018-10-23] VITALS: BP 108/57
--- NOTE | 2018-10-23 | NUR ---
VITAL SIGNS ARE WITHIN NORMAL LIMITS. ADMINISTERED MORPHINE FOR PAIN. SAFETY MEASURES ARE IN PLACE. CALL LIGHT WITHIN REACH.
--- NOTE | 2018-10-23 02:20 | NUR ---
PT IS RESTING COMFORTABLY IN BED. BROTH GIVEN PER REQUEST. ALL NEEDS MET AT THIS TIME. CALL LIGHT WITHIN REACH. WILL CONTINUE TO MONITOR.
[2018-10-23] MEDS: LACTATED RINGERS 1,000 ML IV SCH (02:35)
[2018-10-23] MEDS: ONDANSETRON 4 MG/2 ML VIAL IVP PRN (03:22)
[2018-10-23] MEDS: MORPHINE SULFATE 2 MG/ML SYR IVP PRN ×2 (03:24→06:40)
[2018-10-23 04:00] VITALS: BP 103/40
--- NOTE | 2018-10-23 04:00 | NUR ---
VITAL SIGNS ARE WITHIN NORMAL LIMITS. PT RESTING COMFORTABLY IN BED. RESPIRATIONS ARE EQUAL AND UNLABORED. CALL LIGHT WITHIN REACH. WILL CONTINUE TO MONITOR.
--- NOTE | 2018-10-23 07:14 | NUR ---
GAVE BEDSIDE REPORT TO EZIO RN. PT ENDORSED IN STABLE CONDITION. SAFETY MEASURES ARE IN PLACE.
--- NOTE | 2018-10-23 07:15 | NUR ---
RECEIVED REPORT FROM MEDIA DEVELOPER NURSE KENNY AT BEDSIDE FOR CONTINUITY OF CARE. PATIENT AWAKE AND ALERT AMBULATING AROUND NURSING FLOOR. PATIENT MEDICATED FOR PAIN AT 0640. PATIENT KNOWS NEXT SCHEDULED MEDICATION. RESPIRATIONS EVEN AND UNLABORED ON ROOM AIR. IV SITE INTACT, PATENT, AND ASYMPTOMATIC, INFUSING IVF WELL. UPDATED BOARD, UPDATED PATIENT ON PLAN OF CARE, HE VERBALIZED UNDERSTANDING. SAFETY PRECAUTIONS IN PLACE, CALL LIGHT WITHIN REACH, WILL CONTINUE TO MONITOR PATIENT.
[2018-10-23 07:39] VITALS: BP 132/90
--- NOTE | 2018-10-23 08:15 | NUR ---
PATIENT REQUESTED TO ADVANCE DIET. DR. HUANG CALLED, PER DR. HUANG, D/T PATIENT'S ABDOMINAL PAIN, PATIENT ON CLEAR LIQUID DIET. DIET CAN BE ADVANCED WHEN PATIENT'S ABDOMINAL PAIN IS TOLERABLE. PATIENT ALSO DOES NOT AGREE WITH DR. HUANG'S SCHEDULE ORAL PAIN MEDICATIONS. PATIENT PREFERS IV PAIN MEDICATIONS. ENCOURAGED PATIENT TO TRY DR. HUANG'S SCHEDULE PAIN MEDICATIONS, PATIENT REFUSE STATING THAT IT "DOES NOT WORK FOR ME". "I TRIED YESTERDAY, IT DIDN'T WORK". PATIENT TOOK ORAL MEDICATIONS YESTERDAY AND VOMITED. PATIENT WANTS TO GO AMA BECAUSE HE FEELS "MY NEEDS AND PAIN IS NOT BEING ADDRESSED." CHARGE NURSE SAMM BOTELLO. WILL CONTINUE TO MONITOR PATIENT.
--- NOTE | 2018-10-23 08:25 | NUR ---
PATIENT AWARE OF COMPLICATIONS OF GOING AMA. HOWEVER, STATED THAT HE IS NOT AGREEABLE TO HIS CARE. PATIENT NOT WILLING TO FOLLOW DR. HUANG'S ORDERS. PATIENT AGAIN ASKED TO GO AMA. RN VERBALIZED UNDERSTANDING.
--- NOTE | 2018-10-23 08:30 | NUR ---
PATIENT'S MOTHER CALLED, UPDATED HER ON PATIENT'S STATUS. PATIENT'S MOTHER PREFER PATIENT TO STAY AT HOSPITAL. EXPLAINED TO HER PATIENT'S STATING THAT HIS NEEDS ARE NOT BEING ADDRESSED AND NOT FOLLOWING THE DOCTOR'S ORDERS. SHE STATES THAT SHE UNDERSTANDS AND THAT HER DAUGHTER WILL BE COMING TO PICK PATIENT UP.
--- NOTE | 2018-10-23 08:40 | NUR ---
PATIENT'S SIGNED AMA PAPERWORK, IV REMOVED, IV CATHETER INTACT, MINIMAL BLEEDING NOTED. ID BANDS REMOVED. TELE MONITOR REMOVED. PATIENT WAITING FOR SISTER TO COME PICK HIM UP TO GO HOME.
--- NOTE | 2018-10-23 08:50 | NUR ---
PAGED DR. NAPOLES TO TELL HIM ABOUT PATIENT'S AMA. WAITING FOR CALL BACK.
--- NOTE | 2018-10-23 08:55 | NUR ---
PATIENT WENT AMA, AMBULATED OFF FLOOR, TOOK ALL HIS BELONGINGS WITH HIM. SISTER COMING TO PICK HIM UP.
== END 2018-10-23 08:55 | disposition left against medical advice (07) | DRG 254 ==
LOC: MED 09:00 → MMU 13:25
PROVIDERS: ADMIT Internal Medicine Pulmonary Disease; ATTEND Internal Medicine Pulmonary Disease
DX: K31.84 Gastroparesis (principal); R65.11 Systemic inflammatory response syndrome (SIRS) of non-infectious origin with acute organ dysfunction; N17.0 Acute kidney failure with tubular necrosis; K58.9 Irritable bowel syndrome, unspecified; F11.20 Opioid dependence, uncomplicated; K21.9 Gastro-esophageal reflux disease without esophagitis; E86.0 Dehydration; F12.90 Cannabis use, unspecified, uncomplicated; T50.905A Adverse effect of unspecified drugs, medicaments and biological substances, initial encounter; Y92.89 Other specified places as the place of occurrence of the external cause; Z53.21 Procedure and treatment not carried out due to patient leaving prior to being seen by health care provider
CPT/HCPCS: 36415; 76705; 80053; 83690; 83735; 85025; 85651; 86140; 87081; 93005; 96372; 96374; 96375; 99285; J2060; J2270; J2405; J2765; J7120; Q0092

== ENCOUNTER 2018-11-09 08:47 | Inpatient (IN) | payer OTHER ==
[~2018-11-09] VITALS: Ht 177.8 cm; Wt 89.8 kg
--- NOTE | 2018-11-09 08:50 | NUR ---
PATIENT AMBULATED TO BED 5 AT THIS TIME.
[2018-11-09 08:54] VITALS: BP 114/81
--- NOTE | 2018-11-09 08:54 | NUR ---
DR. MNEESES AT BEDSIDE EVALUATING PATIENT.
--- NOTE | 2018-11-09 09:12 | NUR ---
PATIENT PRESENTS TO ED WITH SHARP RLQ PAIN .+ N/V. PT DENIES ANY FEVER. PATIENT STATES PAIN OF 10/10 AT THIS TIME. POSITIONED FOR COMFORT; HOB ELEVATED; BEDRAILS UP X2; BED DOWN.
[2018-11-09] MEDS ORDERED: NACL 0.9% 2,000 ML IV ONE (09:21)
[2018-11-09] MEDS ORDERED: METOCLOPRAMIDE 10 MG/2 ML INJ VIAL IVP ONE (09:25)
[2018-11-09] MEDS ORDERED: MORPHINE SULFATE 4 MG/ML SYR IVP ONE (09:25)
[2018-11-09] MEDS ORDERED: diphenhydrAMINE 50 MG/ML VIAL IVP ONE (09:25)
[2018-11-09 09:49] LABS: BASOPHILS # (AUTO) 0.1 K/uL (0.00-0.22); BASOPHILS % (AUTO) 0.7 % (0.0-2.0); EOSINOPHILS # (AUTO) 0.1 K/uL (0-0.4); EOSINOPHILS % (AUTO) 0.4 % (0.0-4.0); HEMATOCRIT 47.6 % (36-52); LYMPHOCYTES # (AUTO) 2.1 K/uL (2.0-11.5); LYMPHOCYTES % (AUTO) 14.5 % (20.5-51.1); MEAN CORPUSCULAR HEMOGLOBIN 30 pg (27-31); MEAN CORPUSCULAR HGB CONC 34 g/dL (33-37); MEAN CORPUSCULAR VOLUME 88.8 fL (80-94); MONOCYTES # (AUTO) 1.7 K/uL (0.8-1.0); MONOCYTES % (AUTO) 11.8 % (1.7-9.3); NEUTROPHILS # (AUTO) 10.6 K/uL (1.8-7.7); NEUTROPHILS % (AUTO) 72.6 % (42.2-75.2); PLATELET COUNT (AUTO) 436 K/uL (140-450); RED BLOOD CELL COUNT(AUTO) 5.36 MIL/uL (4.20-6.10); RED CELL DISTRIBUTION WIDTH 13.3 % (11.6-13.7); WHITE BLOOD COUNT (AUTO) 14.6 K/uL (4.8-10.8)
[2018-11-09 09:58] LABS: ANION GAP 16.9 (8-16); CREATININE 1.5 mg/dL (0.7-1.3); POTASSIUM 3.9 mmol/L (3.5-5.1)
[2018-11-09 10:03] LABS: ALBUMIN 4.5 g/dL (3.4-5.0)
[2018-11-09] MEDS ORDERED: KETAMINE 10 MG/ML UD SYR **ER IVP ONE ×2 (10:40→13:10)
--- NOTE | 2018-11-09 11:25 | NUR ---
PT PULLED OUT IV, DR MENESES NOTIFIED
--- NOTE | 2018-11-09 11:27 | NUR ---
DR MENESES AT BEDSIDE FOR IV PLACEMENT
--- NOTE | 2018-11-09 11:56 | NUR ---
L AC IV INFILTRATED. IV REMOVED. DR MENESES MADE AWARE
[2018-11-09] MEDS ORDERED: LORazepam 2 MG/ML VIAL IM ONE (12:20)
[2018-11-09] MEDS ORDERED: DOCUSATE SODIUM 250 MG GELCAP PO PRN (14:10)
[2018-11-09] MEDS ORDERED: ONDANSETRON 4 MG/2 ML VIAL IVP ONE (14:10)
[2018-11-09] MEDS ORDERED: ACETAMINOPHEN 325 MG TAB PO PRN (14:10)
[2018-11-09] MEDS ORDERED: ZOLPIDEM 5 MG TAB PO PRN (14:10)
--- NOTE | 2018-11-09 15:08 | NUR ---
Pt admitted at this time to room 106B via wheelchair from ER. Pt able amb from gurney to bed with steady gait. Pt vomited mod amount brownish emesis & c/o 10/10 abd pain with nausea. Left AC IV flushed but line is infiltrated. Unable to insert IV to BUE. Dr. Enio remy. Ice chips provided. Pt oriented to room & unit with proper return demonstration. Call light within reach.
--- NOTE | 2018-11-09 15:12 | NUR ---
Pt admitted to med surg Rm 106B, report given to Lu . Transfer of care at this time.
[2018-11-09] MEDS: HYDROcodone/APAP 5/325 MG 1 TAB TAB PO PRN ×2 (15:38→20:28)
[2018-11-09 16:00] VITALS: BP 142/90
[2018-11-09] MEDS ORDERED: KETOROLAC 30 MG/ML VIAL IVP PRN (16:00)
--- NOTE | 2018-11-09 16:00 | NUR ---
Received call back from Dr. Steen & notified of infiltrated IV & persistent abd pain. New orders received, noted & carried out.
[2018-11-09] MEDS: PROMETHAZINE 25 MG/ML VIAL IVP PRN ×2 (16:17→22:10)
--- NOTE | 2018-11-09 16:17 | NUR ---
Promethazine IVP administered for c/o persistent nausea.
[2018-11-09] MEDS: NACL 0.9% 1,000 ML IV SCH ×2 (16:20→18:06)
--- NOTE | 2018-11-09 17:11 | NUR ---
Pt requests to take shower for comfort, states that it helps him relax & forget about pain. Toiletries provided. Right ankle IV wrapped with plastic & covered with non-skid socks, NS infusion held. Addendum: 11/09/18 at 1839 by Lu Webb RN Wrong time input. Pls disregard above note.
--- NOTE | 2018-11-09 17:16 | NUR ---
Pt amb in hallway, no vomiting, no c/o nausea. Right ankle IV intact with ongoing NS @ 125ml/hr.
--- NOTE | 2018-11-09 17:16 | NUR ---
Pt reports toradol ineffective for pain. Abd soft with active bowel sounds. Offered warm compress hot tea for comfort. Pt refused & states wants an IV medication for pain. Dr. Echeverria paged for persistent c/o abd pain, nonresponsive to toradol & norco. Awaiting call back.
--- NOTE | 2018-11-09 17:20 | NUR ---
Pt requests to take shower for comfort, states that it helps him relax & forget about pain. Toiletries provided. Right ankle IV wrapped with plastic & covered with non-skid socks, NS infusion held.
--- NOTE | 2018-11-09 17:30 | NUR ---
Pt back in room after shower. Resumed NS @ 125ml/hr to right ankle IV.
[2018-11-09] MEDS ORDERED: PANTOPRAZOLE 40 MG TABEC PO SCH (18:00)
[2018-11-09] MEDS: ONDANSETRON 4 MG/2 ML VIAL IVP PRN (18:13)
--- NOTE | 2018-11-09 18:13 | NUR ---
Pt c/o nausea, no vomiting. Zofran administered. Ice chips provided for comfort.
[2018-11-09] MEDS: MORPHINE SULFATE 4 MG/ML SYR IVP PRN ×2 (18:44→22:37)
--- NOTE | 2018-11-09 19:05 | NUR ---
Report given to nurse Brisa.
--- NOTE | 2018-11-09 19:10 | NUR ---
PT IN ROOM SITTING ON BED , HE IS AOX3, HE IS AWAKE AND ALERT AND HAS A 22G RIGHT ANKLE IV SITE RUNNING N/S AT 125. REPORT GIVEN AT BEDSIDE FORM ANTHONY AGUIRRE DAYSHIFT NURSE.
--- NOTE | 2018-11-09 19:13 | NUR ---
Pt sitting up in bed in room, no c/o nausea at this time. Call light within reach.
--- NOTE | 2018-11-09 19:30 | NUR ---
PT IS COMPLAINING OF PAIN AND UPSET STOMACH. PT IS NOTED TO BE RESTLESS AND WANTS TO WALK AROUND HALLWAYS. PT DOES AMBULATE WITH STEADY GAIT. LUNGS CLEAR BUT SLIGHTLY DIMINISHED SOUNDS. BOWEL SOUNDS NOTED TO BE HYPOACTIVE. WILL MEDICATE WITH PAIN MEDICATION AND MONITOR ALSO FOR NAUSEA AND VOMITING.
[2018-11-09 20:00] VITALS: BP 142/95
--- NOTE | 2018-11-09 20:30 | NUR ---
PT GIVEN NORCO PO/PRN AND SAID THAT HE WAS CONCERNED THAT HE WOULD VOMIT THE PILL UP. PT ASKED THAT DOCTOR WOULD BE CALLED TO INCREASE PAIN MEDICATION AND SOMETHING FOR HIS STOMACH. WILL CALL ON BRENDA PABLO, REGARDING PT REQUESTS.
--- NOTE | 2018-11-09 22:15 | NUR ---
PT HAD VOMITED 200MLS OF DARK BILE FLUID. PT GIVEN PHENEGRAN IVP AND [facility] CALLED. DR. VILLAR CALLED AND UPDATED ON PT STATUS. MD VILLAR DID NOT WANT TO INCREASE MORPHINE AMOUNT OR TIME, BUT ALSO HAS ALTERNATIVE PAIN MEDICATION FOR SEVERE PAIN. HOWEVER DR. VILLAR DID ORDER PO/PRN ATIVAN FOR PT RESTLESSNESS AND HE DID ORDER PREVACID BID . NEW ORDERS NOTED AND PUT IN COMPUTER.
--- NOTE | 2018-11-09 22:45 | NUR ---
PT C/O OF SEVERE PAIN IN ABDOMEN AND WAS GIVEN IVP PRN MORPHINE. WILL CONTINUE TO MONITOR FOR PAIN AND NAUSEA AND VOMITING.
[2018-11-09] MEDS ORDERED: LORazepam 1 MG TAB PO PRN (23:10)
[2018-11-10] VITALS: BP 135/79
--- NOTE | 2018-11-10 00:30 | NUR ---
PT C/O PAIN AND NAUSEA AND VOMITING. PT SAID THAT HE DID VOMIT AGAIN BUT WAS UNSURE WHEN. PT REMINDED TO CALL NURSE WHEN HE DOES VOMIT SO WE CAN CHECK THE CONTENTS. PT DECLINED OFFERED TORADOL AND ZOFRAN SAYING IT DOESN'T WORK. PT SAID HE WILL WAIT UNTIL MOPHINE IS AVAILABLE TO TAKE.
--- NOTE | 2018-11-10 01:30 | NUR ---
PT WALKING AROUND UNIT AND WAS SEEN CROUCHED DOWN NEXT TO DOOR THEN HE STANDS UP AGAIN AND WALKS AROUND UNIT. PT WAS GIVEN ATIVAN ABOUT THIS TIME, BUT COMPUTER WAS NEEDING TO BE RESTARTED SO MEDICATION WAS NOT SCANNED AT THE TIME IT WAS GIVEN. V/S T 98.1 P 95 R 18 B/P 135/79 02 97% ON ROOM AIR.
[2018-11-10] MEDS: ONDANSETRON 4 MG/2 ML VIAL IVP PRN (03:16)
[2018-11-10] MEDS: MORPHINE SULFATE 4 MG/ML SYR IVP PRN ×2 (03:16→06:56)
--- NOTE | 2018-11-10 03:30 | NUR ---
PT GIVEN MORPHINE IVP ORDERED FOR SEVERE ABDOMINAL PAIN. PT ALSO C/O NAUSEA, AND WAS GIVEN ZOFRAN. PT SAID HE WILL TAKE ANYTHING AND SAID HE WAS WILING TO TAKE ZOFRAN.
[2018-11-10 03:45] LABS: BARBITURATE, URINE NEG. ng/ml (NEG <=200); BENZODIAZEPINE, URINE NEG. ng/mL (NEG <=200); CANNABINOID, URINE POS. ng/mL (NEG <=50); COCAINE, URINE NEG. ng/mL (NEG <=300); OPIATE, URINE POS. ng/mL (NEG <=2000); PHENCYCLIDINE SCREEN,URINE NEG. ng/mL (NEG <=25)
[2018-11-10] MEDS ORDERED: LANSOPRAZOLE 30 MG CAPDR PO SCH (06:00)
[2018-11-10] MEDS: NACL 0.9% 1,000 ML IV SCH ×2 (06:15→10:06)
--- NOTE | 2018-11-10 07:20 | NUR ---
PT GIVEN MORPHINE REQUESTED. NO MORE VOMITING NOTED THIS SHIFT. PT WAS AMBULATED IN CEE AND WALKED INTO HIS ROOM BEDSIDE REPORT GIVEN TO MARIANO AGUIRRE DAYSHIFT NURSE AT BEDSIDE FOR CONTINUITY OF CARE.
--- NOTE | 2018-11-10 07:23 | NUR ---
RECEIVED BEDSIDE REPORT FROM PHARMACY AIDE RN. PT RESTING IN BED, AROUSABLE BY VOICE. NO S/S DISTRESS. NO C/O PAIN OR DISCOMFORT AT THIS TIME. NO SYMPTOMS OF N/V AT THIS TIME. IV SITE PATENT AND ASYMPTOMATIC, INFUSING IVF PER MD ORDERS. UPDATED BOARD AND EXPLAINED POC. ALL SAFETY PRECAUTIONS IN PLACE, WILL CONTINUE TO MONITOR.
[2018-11-10 08:00] VITALS: BP 103/49
--- NOTE | 2018-11-10 08:28 | NUR ---
PT SEEN AMBULATING IN [facility] HALLWAYS.
--- NOTE | 2018-11-10 08:43 | NUR ---
PATIENT HAS BEEN SCREENED AND CATEGORIZED MODERATE NUTRITION RISK. PATIENT WILL BE SEEN WITHIN 3-5 DAYS OF ADMISSION. 11/12/18[address]
--- NOTE | 2018-11-10 08:50 | NUR ---
ADMINISTERED SCHEDULED MEDICATION. OFFERED TORADOL TO PATIENT, PATIENT REFUSED. STATES IT DOES NOT WORK. OFFERED TO REVIEW OTHER PAIN MEDICATIONS AVAILABLE. PT REFUSED MEDICATION, STATES "I'M ALRIGHT".
[2018-11-10] MEDS ORDERED: PANTOPRAZOLE 40 MG TABEC PO SCH (09:00)
--- NOTE | 2018-11-10 10:08 | NUR ---
PT SLEEPING IN BED, RESPIRATIONS EVEN AND UNLABORED. WILL CONTINUE TO MONITOR.
--- NOTE | 2018-11-10 11:08 | NUR ---
DR. FELIX SPOKE WITH PATIENT AT BEDSIDE. PATIENT STATES HE WANTS TO LEAVE AMA. PT AND MD BOTH SIGNED AMA FORM.
--- NOTE | 2018-11-10 11:29 | NUR ---
PATIENT LEFT AMA. IV SITE REMOVED WITH MINIMAL BLOOD LOSS AND LUMEN COMPLETELY INTACT. ID BANDS REMOVED. ALL PERSONAL BELONGINGS WITH PATIENT.
--- NOTE | 2018-11-11 14:38 | NUR ---
CALLED OFFICE OF DR ZAYAS [phone], SPOKE TO RADHA, FOLLOW-UP APPOINTMENT MADE ON 11/27/18 @ 1030 AM , [address] [place] [id number]. CALLED PATIENT PHONE SPOKE TO THE MOM, MARIANO [phone] AND MADE AWARE OF THE APPOINTMENT SCHEDULE. FAXED CLINICALS TO MD'S OFFICE [phone] PER RADHA'S REQUEST.
== END 2018-11-10 11:30 | disposition left against medical advice (07) | DRG 422 ==
LOC: MED 08:47 → MTU 14:36
PROVIDERS: ADMIT Internal Medicine Pulmonary Disease; ATTEND Internal Medicine Pulmonary Disease
DX: E86.0 Dehydration (principal); N17.9 Acute kidney failure, unspecified; R11.2 Nausea with vomiting, unspecified; F12.90 Cannabis use, unspecified, uncomplicated; Z53.21 Procedure and treatment not carried out due to patient leaving prior to being seen by health care provider; T40.7X5A Adverse effect of cannabis (derivatives), initial encounter; Z79.899 Other long term (current) drug therapy; Z90.81 Acquired absence of spleen; Y92.89 Other specified places as the place of occurrence of the external cause; Z86.2 Personal history of diseases of the blood and blood-forming organs and certain disorders involving the immune mechanism
CPT/HCPCS: 36415; 80053; 80305; 83690; 85025; 87081; 99285; J1200; J1885; J2060; J2270; J2405; J2550; J2765; J7030

== ENCOUNTER 2020-02-27 06:49 | Emergency (ER) | payer OTHER ==
[~2020-02-27] VITALS: Ht 177.8 cm; Wt 83.5 kg
[2020-02-27 06:57] VITALS: BP 137/79
[2020-02-27] MEDS ORDERED: KETOROLAC 30 MG/ML VIAL IM ONE (07:15)
--- NOTE | 2020-02-27 07:22 | NUR ---
PT TAKEN TO CT SCAN VIA WHEELCHAIR
--- NOTE | 2020-02-27 07:26 | NUR ---
34 Y/O MALE C/P R FLANK PAIN X3-4 DAYS W/ SLIGHT HEMATURIA AND DYSURIA. PATIENT DENIES ANY HX OF KIDNEY STONES. STATES PAIN IS MAKING HIM FEEL NAUSEAS AND DIZZY. DENIES ANY CHEST PAIN, SOB, OR COUGH. RESP EVEN AND UNLABORED. DENIES TAKING ANY PAIN MEDICATION TODAY. PMH: IBS, GASTROPARESIS NKA
[2020-02-27 08:04] LABS: BASOPHILS # (AUTO) 0.1 K/uL (0.00-0.22); BASOPHILS % (AUTO) 0.5 % (0.0-2.0); EOSINOPHILS # (AUTO) 0.1 K/uL (0-0.4); EOSINOPHILS % (AUTO) 0.6 % (0.0-4.0); HEMATOCRIT 38.8 % (36-52); HEMOGLOBIN 13.2 g/dL (12.0-18.0); LYMPHOCYTES # (AUTO) 1.2 K/uL (2.0-11.5); LYMPHOCYTES % (AUTO) 11.1 % (20.5-51.1); MEAN CORPUSCULAR HEMOGLOBIN 31 pg (27-31); MEAN CORPUSCULAR HGB CONC 34 g/dL (33-37); MEAN CORPUSCULAR VOLUME 89.4 fL (80-94); MONOCYTES # (AUTO) 1.4 K/uL (0.8-1.0); MONOCYTES % (AUTO) 13.4 % (1.7-9.3); NEUTROPHILS # (AUTO) 8.1 K/uL (1.8-7.7); NEUTROPHILS % (AUTO) 74.4 % (42.2-75.2); PLATELET COUNT (AUTO) 367 K/uL (140-450); RED BLOOD CELL COUNT(AUTO) 4.34 MIL/uL (4.20-6.10); WHITE BLOOD COUNT (AUTO) 10.9 K/uL (4.8-10.8)
[2020-02-27 08:19] LABS: ALBUMIN 3.3 g/dL (3.4-5.0); ANION GAP 13.2 (8-16); CARBON DIOXIDE 25.4 mmol/L (21-32); TOTAL BILIRUBIN 0.4 mg/dL (0.0-1.0)
[2020-02-27 08:21] LABS: POTASSIUM 2.6 mmol/L (3.5-5.1)
[2020-02-27] MEDS ORDERED: POTASSIUM CHLORIDE 10 MEQ TABER PO ONE (08:25)
--- NOTE | 2020-02-27 08:27 | NUR ---
PT IS UNABLE TO URINATE AT THIS TIME
[2020-02-27] MEDS ORDERED: HYDROcodone/APAP 5/325 MG 1 TAB TAB PO ONE (09:15)
[2020-02-27 09:31] LABS: BILIRUBIN,URINE 2+ (NEGATIVE); BLOOD, URINE NEGATIVE (NEGATIVE); COLOR,URINE ORANGE (YELLOW); LEUKOCYTE ESTERASE ,URINE NEGATIVE (NEGATIVE); NITRITE, URINE NEGATIVE (NEGATIVE); PH,URINE 6.5 (5.0-9.0); UGLUCOSE NEGATIVE (NEGATIVE)
[2020-02-27 09:33] VITALS: BP 132/82
--- NOTE | 2020-02-27 09:34 | NUR ---
Patient discharged with v/s stable. Written and verbal after care instructions given and explained. Patient verbalized understanding. Ambulatory with steady gait. All questions addressed prior to discharge. Advised to follow up with PMD.
[2020-02-27 09:35] LABS: APPEARANCE,URINE SLIGHTLY HAZY (CLEAR); RBC,URINE 0-5 /HPF (0-5); WBC,URINE 0-5 /HPF (0-5)
== END 2020-02-27 09:34 | disposition home or self-care (01) ==
LOC: MED 06:49
DX: R10.9 Unspecified abdominal pain (principal); E87.6 Hypokalemia; E27.8 Other specified disorders of adrenal gland; Z79.899 Other long term (current) drug therapy
CPT/HCPCS: 36415; 74176; 80053; 81001; 83690; 85025; 96372; 99284; J1885; 81002